=== PATIENT | male | born 1965 | race African-American/Black ===

== ENCOUNTER 2023-10-19 11:22 | Inpatient (IN) ==
--- NOTE | 2023-10-19 11:42 | CT Scan Report ---
CT SCAN OF THE BRAIN WITHOUT IV CONTRAST CLINICAL HISTORY: Neurological deficit. Stroke like symptoms. Slurred speech. COMPARISON STUDY: No priors. TECHNIQUE: Unenhanced axial CT scan of the brain is performed from the vertex to the skull base. A do se lowering technique was utilized adhering to the principles of ALARA. CT DOSE: 625.8 mGy.cm FINDINGS: Brain parenchyma: There is an age indeterminate lacunar infarct centered in the left basal ganglia/pe riventricular white matter. There is age-related involutional change noting mild subcortical and herminia ventricular microangiopathic disease. There is no hemorrhage, mass effect, or evidence of acute nathan torial ischemia by CT criteria. No extra-axial fluid collection is seen. Ventricles, sulci, cisterns: Prominent secondary to involutional change. Intracranial vasculature: There is atherosclerotic calcification of the cavernous carotid arteries. Calvarium: Unremarkable. Sinuses and mastoids: The visualized paranasal sinuses are clear. The mastoid air cells are well pneu matized. Orbits: The bony orbits are grossly intact. IMPRESSION: 1. There is no hemorrhage, mass effect, or evidence of acute territorial ischemia by CT criteria. 2. There is an age indeterminate lacunar infarct centered in the left basal ganglia/periventricular w santi matter. Consider MRI for further assessment given the concern for acute stroke. ACT 112: Negative or not required by law. Electronically signed by: Redd Mcbride M.D. 10/19/2023 11:41 AM
--- NOTE | 2023-10-19 11:50 | Emergency Department Note ---
Impression & Plan Acute CVA (cerebrovascular accident), HTN (hypertension), Uncontrolled type 2 diabetes mellitus ED Provider Note NAME: IVONNE BOSS AGE: 58 SEX: M : 1965 ARRIVES VIA: Walk-In INFORMANT: Patient ED PROVIDER(S): Amado Devlin DO CHIEF COMPLAINT: slurred speech and trouble walking HPI: Patient is a 58-year-old male who presents to the ER with a past medical history of diabetes, hypertension and CKD as well as hyperlipidemia for slurred speech. He notes that symptoms started yesterday early in the morning. He notes it has been persistent and has noticed that it throughout today. Has been having trouble walking as well. He denies any focal weakness in his arms or legs. No headache or change in vision. No chest pain or shortness of breath. No nausea, vomiting, or diarrhea. No dysuria, urgency, or frequency. No other exacerbating or remitting factors. He has not taken his amlodipine for several days has been out of his blood pressure medications. ADDITIONAL HISTORY OBTAINED: Per HPI Chronic Medical/Social Conditions Affecting Care: Per HPI PAST MEDICAL HISTORY:See Below PAST SURGICAL HISTORY:See Below FAMILY HISTORY:See Below SOCIAL HISTORY:See Below HOME MEDICATIONS:See Below ALLERGIES:See Below VITALS:See Below PHYSICAL EXAMINATION: GENERAL: Sitting up in bed, alert, well appearing, well nourished, no distress, non-toxic EYE EXAM: normal conjunctiva. [PERRL and EOM's grossly intact.] OROPHARYNX: no exudate, no erythema, lips, buccal mucosa, and tongue normal and mucous membranes are moist NECK: supple, no nuchal rigidity, no adenopathy, non-tender LUNGS: Clear to auscultation. Normal chest wall mechanics HEART: no murmurs, S1 normal and S2 normal ABDOMEN: abdomen soft, non-tender, normo-active bowel sounds, no masses, no rebound or guarding. BACK: Back is symmetrical on inspection and there is no deformity, no midline tenderness, no CVA tenderness. SKIN: no rashes and no bruising UPPER EXTREMITIES: upper extremities are grossly normal. LOWER EXTREMITIES: No pitting edema. NEURO EXAM: Normal sensorium, cranial nerves II-XII intact, normal speech, no weakness of arms, no weakness of legs. No drift. Finger to nose intact. Gross sensation intact. MEDICAL DECISION MAKING: Patient is an 58-year-old male who presents ER with a past medical history of hypertension, hyperlipidemia and diabetes as well as CKD for trouble talking as well as unsteady gait. IV was established blood work is obtained. Labs show mild leukopenia 3.5 thousand. No significant anemia. BMP along with LFTs was remarkable for glucose elevated 270. LFTs bilirubin was unremarkable. Blood pressure trended down from the 200s to 180s without treatment. CT suggest a CVA. Will allow permissive hypertension. Discussed with the hospitalist for further evaluation management treatment. Patient was not a TNK candidate as symptoms started yesterday and is clearly out of the window. Consults/Care Managements Discussions: Per [facility] Triage Nursing notes reviewed. Differential Diagnosis includes but is not limited to ischemic Stroke, hemorrhagic stroke, bells palsy, mass, neoplasm, migraine headache, seizure, subarachnoid hemorrhage, TIA, and transient global amnesia. Vital Signs: reviewed and remarkable for HTN Differential diagnosis: Differential Diagnosis includes but is not limited to ischemic Stroke, hemorrhagic stroke, bells palsy, mass, neoplasm, migraine headache, seizure, subarachnoid hemorrhage, TIA, and transient global amnesia. ER treatment provided: See below Diagnostics interpreted by me include EKG and cardiac monitoring as listed below: -Cardiac Monitoring: An order was placed for continuous cardiac monitoring. The monitor shows a rate of 72 with sinus rhythm. -ECG: Sinus rhythm rate of 70 Normal axis No PVCs QTc 423 Septal Q waves -Laboratory studies:Interpreted by me as stated above in MDM and shown below. Imaging studies: Xrays: As interpreted by me: Portable AP upright 1 view of the chest shows no focal infiltrate CTs show: CT angios of the head and neck as well as Noncon suggest a age- indeterminate CVA Procedures:none Critical Care: None Past Med/Surg History Medical History (Updated 10/19/23 @ 14:18 by Zachary Carmichael MD) Oral mucosal lesion CKD (chronic kidney disease) Overweight (BMI 25.0-29.9) Hyperlipidemia HTN (hypertension) Insulin-requiring or dependent type II diabetes mellitus Uncontrolled type 2 diabetes mellitus Surgical History History of colonoscopy 09/01/2018 Family History Mother Myocardial infarction Grandmother (Maternal) Diabetes Other Hypertension Social History (Updated 08/21/22 @ 09:24 by APOLINAR Aiken) Smoking Status: Current every day smoker Tobacco Type: Cigars Cigarettes Per Day: Smokes cigars twice a week; Do You Dip or Chew Tobacco: No; Hx Alcohol Use: Yes Alcohol type: hard liquor Alcohol Intake Frequency: 2-3 x/Week Alcohol Intake Frequency Comment: A cocktail 3 times week Hx Substance Use: No Preferred Language: Albanian Feels Safe at Home: Yes Allergies Allergies Allergy/AdvReac Type Severity Reaction Status Date / Time No Known Drug Allergies Allergy Verified 10/19/23 13:32 Home Meds Home Medications Medication Instructions Recorded Confirmed amlodipine 5 mg tablet 5 mg PO DAILY 07/12/21 10/19/23 aspirin 81 mg capsule 81 mg PO DAILY 07/12/21 10/19/23 blood sugar diagnostic (MasCuponTouch 07/12/21 08/21/22 Ultra Test strips) dapagliflozin propanediol 10 mg 10 mg PO DAILY 07/12/21 10/19/23 tablet (Farxiga) hydrochlorothiazide 25 mg tablet 25 mg PO DAILY 07/12/21 10/19/23 insulin glargine 100 unit/mL (3 30 unit subcut HS 07/12/21 10/19/23 mL) subcutaneous pen (Basaglar KwikPen U-100 Insulin) lancets (Ourpalmuch UltraSoft 07/12/21 08/21/22 Lancets) lisinopril 40 mg tablet 40 mg PO DAILY 07/12/21 10/19/23 metformin 500 mg tablet 500 mg PO TID 07/12/21 10/19/23 multivitamin 1 tab PO DAILY 07/12/21 10/19/23 omega-3 fatty acids 1,000 mg 2,000 mg PO BID 07/12/21 10/19/23 capsule (Fish Oil Concentrate) pen needle, diabetic 29 gauge x 07/12/21 08/21/22 1/2" (BD Ultra-Fine Original Pen Needle) rosuvastatin 10 mg tablet (Crestor) 10 mg PO DAILY 07/12/21 10/19/23 Results & Data (ED) Vital Signs Vital Signs - 24 hr 10/19/23 11:24 10/19/23 11:28 10/19/23 11:57 Temperature 36.1 C L Temperature Source Temporal Artery Scan Pulse Rate 71 65 Pulse Rate [Right Finger] 67 Respiratory Rate 18 18 Respiratory Effort / Characteristics Non-Labored Spontaneous Non-Labored Spontaneous Respiratory Depth Normal Normal Respiratory Pattern Regular Blood Pressure 223/131 H Blood Pressure [Left Arm] 198/117 H Blood Pressure Mean 161 Blood Pressure Mean [Left Arm] 144 Blood Pressure Position Sitting Pulse Oximetry 99 96 Oxygen Delivery Method Room Air Room Air Sepsis Recent Fever Within 48 Hours No Sepsis New/Unexplained Change in Mental Status N/A Sepsis Action Taken by Nursing No Action Required 10/19/23 11:57 10/19/23 11:57 10/19/23 13:27 Temperature Temperature Source Pulse Rate 67 Pulse Rate [Right Finger] 70 Respiratory Rate 18 20 Respiratory Effort / Characteristics Non-Labored Spontaneous Respiratory Depth Normal Respiratory Pattern Blood Pressure Blood Pressure [Left Arm] 183/127 H Blood Pressure Mean Blood Pressure Mean [Left Arm] 145 Blood Pressure Position Pulse Oximetry 96 96 96 Oxygen Delivery Method Room Air Room Air Room Air Sepsis Recent Fever Within 48 Hours Sepsis New/Unexplained Change in Mental Status Sepsis Action Taken by Nursing Laboratory Data 10/19/23 11:50 10/19/23 11:50 Lab Results 10/19/23 10/19/23 10/19/23 Range/Units 11:38 11:50 11:57 WBC 3.54 L (4.8-10.8) K/ul RBC 4.60 L (4.70-6.10) M/uL Hgb 14.4 (14.0-18.0) g/dl POC Hgb 14.6 (14.0-18.0) g/dl Hct 40.7 L (42.0-52.0) % POC Hct 43 (42-52) % MCV 88.5 (80.0-100.0) fL MCH 31.3 (25.0-34.0) pg MCHC 35.4 (32.0-36.0) g/dL RDW Std Deviation 38.7 (36.4-46.3) fL RDW Coeff of Lidia 11.9 (11.5-14.5) % Plt Count 197 (130-400) K/uL MPV 11.3 (9.4-12.4) fL PT 10.7 (9.0-12.0) Seconds INR 1.0 (0.9-1.1) APTT 24 (21-31) Seconds PTT Ratio 0.9 POC Sodium 140 (135-144) mmol/L Sodium 138 (136-145) mmol/L POC Potassium 4.5 (3.3-5.0) mmol/L Potassium 4.6 (3.5-5.1) mmol/L POC Chloride 104 (101-112) mmol/L Chloride 104 (98-107) mmol/L Carbon Dioxide 26 (21-32) mmol/L POC Total CO2 27 (24-31) mmol/L Anion Gap 8 (3-11) POC Anion Gap 15.0 L (16-25) mmol/L POC BUN 17 (7-18) mg/dl BUN 15 (6-23) mg/dl Creatinine 1.13 (0.6-1.4) mg/dl POC Creatinine 1.1 (0.6-1.3) mg/dl Est Cr Clr Drug Dosing 67.3 ml/min Est GFR ( Amer) 81.4 ml/min Est GFR (Non-Af Amer) 70.3 ml/min BUN/Creatinine Ratio 13.3 (10-20) Glucose 275 H (70-99(Fasting)) mg/dl POC Glucose 305 H* (70-99) mg/dl POC Glucose (other) 282 H (70-99) mg/dl Calcium 10.0 (8.6-10.3) mg/dl POC Ioniz Calcium Sandy 1.21 (1.12-1.32) mmol/l Magnesium 1.8 (1.7-2.4) mg/dl Total Bilirubin 0.9 (0.2-1.0) mg/dl AST 23 (13-39) U/L ALT 32 (7-52) U/L Alkaline Phosphatase 82 (34-104) U/L Total Protein 7.8 (6.0-8.3) gm/dl Albumin 4.5 (3.4-5.0) gm/dl Globulin 3.3 (2.5-4.0) gm/dl Albumin/Globulin Ratio 1.4 (0.9-2) Administered Medications Discontinued Medications Insulin Human Regular (Novolin-R Insulin Per Unit Charge) 3 units IV ONE ONE Stop: 10/19/23 14:01 Last Admin: 10/19/23 14:09 Dose: 3 units Documented By: SUSY Co-signed By: MARISSA Ioversol (Optiray 320 125ml) 119 ml IV ONCE ONE Stop: 10/19/23 12:25 Last Admin: 10/19/23 12:24 Dose: 119 ml Documented By: CONSTANTINE Imaging Data Radiologist's Impression: Chest X-Ray 10/19/23 11:28 XR chest 1V portable HISTORY: Neurologic deficit. Slurred speech. Stroke symptoms. COMPARISON: None. FINDINGS: The lungs are clear. Cardiac silhouette is borderline enlarged. No pleural effusions. No pneumothorax. IMPRESSION: Borderline cardiomegaly. Otherwise, no acute process within the chest. ACT 112: Negative or not required by law. Electronically signed by: Tomas Thompson M.D. 10/19/2023 12:[address] 10/19/23 11:28 CT SCAN OF THE BRAIN WITHOUT IV CONTRAST CLINICAL HISTORY: Neurological deficit. Stroke like symptoms. Slurred speech. COMPARISON STUDY: No priors. TECHNIQUE: Unenhanced axial CT scan of the brain is performed from the vertex to the skull base. A dose lowering technique was utilized adhering to the principles of ALARA. CT DOSE: 625.8 mGy.cm FINDINGS: Brain parenchyma: There is an age indeterminate lacunar infarct centered in the left basal ganglia/periventricular white matter. There is age-related involutional change noting mild subcortical and periventricular microangiopathic disease. There is no hemorrhage, mass effect, or evidence of acute territorial ischemia by CT criteria. No extra-axial fluid collection is seen. Ventricles, sulci, cisterns: Prominent secondary to involutional change. Intracranial vasculature: There is atherosclerotic calcification of the cavernous carotid arteries. Calvarium: Unremarkable. Sinuses and mastoids: The visualized paranasal sinuses are clear. The mastoid air cells are well pneumatized. Orbits: The bony orbits are grossly intact. IMPRESSION: 1. There is no hemorrhage, mass effect, or evidence of acute territorial ischemia by CT criteria. 2. There is an age indeterminate lacunar infarct centered in the left basal ganglia/periventricular white matter. Consider MRI for further assessment given the concern for acute stroke. ACT 112: Negative or not required by law. Electronically signed by: Redd Mcbride M.D. 10/19/2023 11:41 AM Head CTA 10/19/23 11:47 CT angio head w con CLINICAL HISTORY: 58 years-old Male with ? cva slurred speech trouble walking. Acute stroke like symptoms COMPARISON STUDY: Head CT of same day TECHNIQUE: Following the IV administration of 119 cc of Optiray, CT angiogram of the brain was performed from the skull base to the vertex. Images are reviewed in the axial, sagittal, and coronal planes. 3-D MIPS images are created and assessed. IV contrast was administered without complication. All measurements were obtained according to NASCET criteria. A dose lowering technique was utilized adhering to the principles of ALARA. FINDINGS: CT ANGIOGRAM OF THE BRAIN: The imaged bilateral internal carotid arteries are patent. The bilateral anterior and middle cerebral arteries are also patent. The vertebrobasilar system and posterior cerebral arteries are widely patent. There is no aneurysm, high-grade stenosis, or proximal branch occlusion identified. Dural sinuses appear patent. Age-indeterminate lacunar infarct within the left frontal lobe krueger radiata/lateral nucleus. IMPRESSION: Unremarkable CTA of the head. ACT 112: Negative or not required by law. The above report was generated using voice recognition software. It may contain grammatical, syntax or spelling errors. Electronically signed by: Tom Chirinos M.D. 10/19/2023 12:42 PM Neck CTA 10/19/23 11:47 CT ANGIOGRAM OF THE NECK CLINICAL HISTORY: Strokelike symptoms. Slurred speech. COMPARISON STUDY: No priors. TECHNIQUE: Following the IV administration of 119 of Optiray 320, CT angiogram of the neck was performed from the aortic arch to the skull base. Images are reviewed in the axial, sagittal, and coronal planes. 3-D MIPS images are created and assessed. IV contrast was administered without complication. All measurements were calculated based on NASCET criteria. A dose lowering technique was utilized adhering to the principles of ALARA. CT DOSE: 519.45 mGy.cm FINDINGS: Thoracic aorta: Visualized portions of the thoracic aorta are normal in caliber. The aortic arch demonstrates standard 3-vessel anatomy. Right carotid arterial system: The right common carotid artery is widely patent, as are the right internal and external carotid arteries. Calcified plaque is noted in the carotid bulb. Left carotid arterial system: The left common carotid artery is widely patent, as are the left internal and external carotid arteries. Mild calcified plaque is seen in the carotid bulb. Vertebral arteries: The vertebral arteries are widely patent bilaterally noting left-sided dominance. Subclavian arteries: Widely patent bilaterally. Intracranial vasculature: The visualized intracranial vessels at the skull base are patent. Jugular veins: Widely patent bilaterally. Brain parenchyma: The visualized brain parenchyma the skull base is within normal limits. Lung apices: Partially visualized upper lobe lung parenchyma appears clear. Soft tissues: The visualized pharyngeal soft tissues are normal in appearance noting angiographic phase technique. The oropharyngeal airway appears widely patent. The salivary and thyroid glands are normal in appearance. No cervical lymphadenopathy is seen. Skeletal structures: The visualized calvarium at the skull base appears intact. The imaged cervical spine is maintained noting multilevel spondylosis. Sinuses and mastoids: There is trace mucosal thickening in the right maxillary antrum. The mastoid air cells are well pneumatized. Cerumen is noted in the external auditory canals. IMPRESSION: Unremarkable CT angiogram of the neck. ACT 112: Negative or not required by law. Electronically signed by: Redd Mcbride M.D. 10/19/2023 12:36 PM Discharge Plan Visit Data Chief Complaint: TIA Symptoms Stated Complaint: SLURRED SPEECH ED Provider: Amado Devlin Discharge Problem: Acute CVA (cerebrovascular accident), HTN (hypertension), Uncontrolled type 2 diabetes mellitus Patient Disposition: Admitted As Inpatient Discharge Instructions Interventions: ED Discharge Assessment Last Done: 10/19/23 13:37
[2023-10-19 12:10] LABS: iSTAT Creatinine 1.1 mg/dl (0.6-1.3); iSTAT Hemoglobin 14.6 g/dl (14.0-18.0); iSTAT Ionized Calcium 1.21 mmol/l (1.12-1.32); iSTAT Potassium 4.5 mmol/L (3.3-5.0)
[2023-10-19 12:17] LABS: Hematocrit (blood only) 40.7 % (42.0-52.0); Hemoglobin 14.4 g/dl (14.0-18.0); Mean Corpuscular Hemoglobin 31.3 pg (25.0-34.0); Mean Corpuscular Hgb Conc 35.4 g/dL (32.0-36.0); Mean Corpuscular Volume 88.5 fL (80.0-100.0); Mean Platelet Volume 11.3 fL (9.4-12.4); Platelet Count 197 K/uL (130-400); RDW Coefficient of Variation 11.9 % (11.5-14.5); RDW Standard Deviation 38.7 fL (36.4-46.3); White Blood Count 3.54 K/ul (4.8-10.8)
[2023-10-19] MEDS ORDERED: OPTIRAY 320 125ml IV ONE (12:24)
[2023-10-19 12:36] LABS: Albumin Globulin Ratio 1.4 (0.9-2); Albumin Level 4.5 gm/dl (3.4-5.0); BUN Creatinine Ratio 13.3 (10-20); Bilirubin,Total 0.9 mg/dl (0.2-1.0); Creatinine Clr Calc Pharmacy 67.3 ml/min; Est GFR (African American) 81.4 ml/min; Est GFR (Non-African American) 70.3 ml/min; Globulin 3.3 gm/dl (2.5-4.0); Magnesium 1.8 mg/dl (1.7-2.4); Potassium 4.6 mmol/L (3.5-5.1); Total Protein 7.8 gm/dl (6.0-8.3)
--- NOTE | 2023-10-19 12:38 | CT Scan Report ---
CT ANGIOGRAM OF THE NECK CLINICAL HISTORY: Strokelike symptoms. Slurred speech. COMPARISON STUDY: No priors. TECHNIQUE: Following the IV administration of 119 of Optiray 320, CT angiogram of the neck was perfor med from the aortic arch to the skull base. Images are reviewed in the axial, sagittal, and coronal p lanes. 3-D MIPS images are created and assessed. IV contrast was administered without complication. A ll measurements were calculated based on NASCET criteria. A dose lowering technique was utilized adh ering to the principles of ALARA. CT DOSE: 519.45 mGy.cm FINDINGS: Thoracic aorta: Visualized portions of the thoracic aorta are normal in caliber. The aortic arch demo nstrates standard 3-vessel anatomy. Right carotid arterial system: The right common carotid artery is widely patent, as are the right int ernal and external carotid arteries. Calcified plaque is noted in the carotid bulb. Left carotid arterial system: The left common carotid artery is widely patent, as are the left director internal control al and external carotid arteries. Mild calcified plaque is seen in the carotid bulb. Vertebral arteries: The vertebral arteries are widely patent bilaterally noting left-sided dominance. Subclavian arteries: Widely patent bilaterally. Intracranial vasculature: The visualized intracranial vessels at the skull base are patent. Jugular veins: Widely patent bilaterally. Brain parenchyma: The visualized brain parenchyma the skull base is within normal limits. Lung apices: Partially visualized upper lobe lung parenchyma appears clear. Soft tissues: The visualized pharyngeal soft tissues are normal in appearance noting angiographic pha se technique. The oropharyngeal airway appears widely patent. The salivary and thyroid glands are nor mal in appearance. No cervical lymphadenopathy is seen. Skeletal structures: The visualized calvarium at the skull base appears intact. The imaged cervical s pine is maintained noting multilevel spondylosis. Sinuses and mastoids: There is trace mucosal thickening in the right maxillary antrum. The mastoid ai r cells are well pneumatized. Cerumen is noted in the external auditory canals. IMPRESSION: Unremarkable CT angiogram of the neck. ACT 112: Negative or not required by law. Electronically signed by: Redd Mcbride M.D. 10/19/2023 12:36 PM
[2023-10-19 12:42] LABS: Partial Thromboplastin Ratio 0.9; Partial Thromboplastin Time 24 Seconds (21-31); Prothrombin Time 10.7 Seconds (9.0-12.0)
--- NOTE | 2023-10-19 12:43 | CT Scan Report ---
CT angio head w con CLINICAL HISTORY: 58 years-old Male with ? cva slurred speech trouble walking. Acute stroke like s ymptoms COMPARISON STUDY: Head CT of same day TECHNIQUE: Following the IV administration of 119 cc of Optiray, CT angiogram of the brain was perfor med from the skull base to the vertex. Images are reviewed in the axial, sagittal, and coronal planes . 3-D MIPS images are created and assessed. IV contrast was administered without complication. All me asurements were obtained according to NASCET criteria. A dose lowering technique was utilized adherin g to the principles of ALARA. FINDINGS: CT ANGIOGRAM OF THE BRAIN: The imaged bilateral internal carotid arteries are patent. The bilateral anterior and middle cerebral arteries are also patent. The vertebrobasilar system and posterior cerebral arteries are widely russell nt. There is no aneurysm, high-grade stenosis, or proximal branch occlusion identified. Dural sinuses appear patent. Age-indeterminate lacunar infarct within the left frontal lobe krueger radiata/lateral nucleus. IMPRESSION: Unremarkable CTA of the head. ACT 112: Negative or not required by law. The above report was generated using voice recognition software. It may contain grammatical, syntax o r spelling errors. Electronically signed by: Tom Chirinos M.D. 10/19/2023 12:42 PM
--- NOTE | 2023-10-19 13:00 | XRay Report ---
XR chest 1V portable HISTORY: Neurologic deficit. Slurred speech. Stroke symptoms. COMPARISON: None. FINDINGS: The lungs are clear. Cardiac silhouette is borderline enlarged. No pleural effusions. No pn eumothorax. IMPRESSION: Borderline cardiomegaly. Otherwise, no acute process within the chest. ACT 112: Negative or not required by law. Electronically signed by: Tomas Thompson M.D. 10/19/2023 12:59 PM
[2023-10-19] MEDS ORDERED: PHARMACIST DISCHARGE MED REC CONSULT PRN (13:41)
[2023-10-19] MEDS ORDERED: INSULIN HUMAN REGULAR PER UNIT 3 UNITS in SYRINGE 0 ML IV STA (13:44)
--- NOTE | 2023-10-19 13:44 | History & Physical Report ---
Date of Service October 19, 2023 Assessment & Plan (1) Acute CVA (cerebrovascular accident): Plan: Of note patient has run out of all of his medications and has not taken any prescriptions for at least a few months. All medications will need to be prescribed on discharge. Suspected on CT head with acute symptoms of slurred speech and reduced balance Suspect on basis of small vessel disease given uncontrolled HTN, BP, Smoking CTA negative for large vessel disease Outside window for TNK TTE PT/OT evaluations Speech evaluation Consult neurology ASA 324mg taken prior to hospitalizan, if MRI confirms acute stroke will start clopidogrel 300mg PO today then 75 mg daily Allow permissive HTN sBP < 220 sBP < 110, give one dose of amlodipine 2.5mg PO now as likely stroke happened yesterday Restart on rosuvastatin but increase to 20mg PO daily (2) HTN (hypertension): Plan: Amlodipine 2,5mg PO now Will defer ongoing management depending on serial BP measurements (3) Insulin-requiring or dependent type II diabetes mellitus: Plan: Previously on Lantus 30 units SQ daily with Novolog 5 units/meal, Farxiga and metformin HbA1C reportedly in 9s a year ago although suspect it is currently above 11 since he has been off all his medications HbA1c with a.m. labs Initial diabetes control with Lantus 10 units BID, NovoLog --Goal BSG Range: Low 110 mg/dL, High 140 mg/dL --Correction Factor: 45 mg/dL/unit --Carbohydrate ratio = 15 g/unit --BSGs ACHS if eating, q6h if npo Consult pharmacy for ongoing glycemic control in the setting of acute CVA (4) Hyperlipidemia: Plan: Restart rosuvastatin at higher intensity 20 mg p.o. daily Plan VTE prophylaxis - deferred since we are starting aspirin and possibly clopidogrel, patient ambulatory Diet - heart healthy, type 2 diabetes Disposition - admit to PCU Admission and Anticipated Discharge Date Admission Date: October 19, 2023 History of Present Illness Chief Complaint: Slurred speech, ambulatory dysfunction Primary Care Provider: NO PCP Sea Maier 58 year old male who presents to the ER with slurred speech and ambulatory dysfunction. He reports symptoms started yesterday with mild difficulty in getting out the right words, pausing more, thinking clearly but difficulty getting his words out. He was still not quite as clear today but decided to go to work when he noticed his balance was slightly off and bumping into tables. He has significant risk factors for cardiovascular disease and recently stopped taking all of his medications for diabetes, hypertension and hypercholesterolemia for the last few months. He stopped all of his medications as he just didn't like taking them as he felt they made him nauseous. He thinks his last HbA1C was approximately a year ago around 9 but was taking insulin that time. In addition he smokes 2 cigars a day but is now motivated to quit. He has a significant family history with his moth, grandmother, cousin dying in their 40s, 50s and 30s respectively with cardiovascular disease. He personally has never had a stroke or heart attack. His gave him x4 aspirin at home prior to arrival in the ER. Allergies Allergy/AdvReac Type Severity Reaction Status Date / Time No Known Drug Allergies Allergy Verified 10/19/23 13:32 Home Medications Medication Instructions Recorded Confirmed Type amlodipine 5 mg tablet 5 mg PO DAILY 07/12/21 10/19/23 History aspirin 81 mg capsule 81 mg PO DAILY 07/12/21 10/19/23 History blood sugar diagnostic ([employer] 07/12/21 08/21/22 History Ultra Test strips) dapagliflozin propanediol 10 mg 10 mg PO DAILY 07/12/21 10/19/23 History tablet (Farxiga) hydrochlorothiazide 25 mg tablet 25 mg PO DAILY 07/12/21 10/19/23 History insulin glargine 100 unit/mL (3 30 unit subcut HS 07/12/21 10/19/23 History mL) subcutaneous pen (Basaglar KwikPen U-100 Insulin) lancets ([employer] UltraSoft 07/12/21 08/21/22 History Lancets) lisinopril 40 mg tablet 40 mg PO DAILY 07/12/21 10/19/23 History metformin 500 mg tablet 500 mg PO TID 07/12/21 10/19/23 History multivitamin 1 tab PO DAILY 07/12/21 10/19/23 History omega-3 fatty acids 1,000 mg 2,000 mg PO BID 07/12/21 10/19/23 History capsule (Fish Oil Concentrate) pen needle, diabetic 29 gauge x 07/12/21 08/21/22 History 1/2" (BD Ultra-Fine Original Pen Needle) rosuvastatin 10 mg tablet (Crestor) 10 mg PO DAILY 07/12/21 10/19/23 History Past Med/Surg History Medical History (Updated 10/19/23 @ 14:18 by Zachary Carmichael MD) Oral mucosal lesion CKD (chronic kidney disease) Overweight (BMI 25.0-29.9) Hyperlipidemia HTN (hypertension) Insulin-requiring or dependent type II diabetes mellitus Uncontrolled type 2 diabetes mellitus Surgical History History of colonoscopy 09/01/2018 Family History Mother Myocardial infarction Grandmother (Maternal) Diabetes Other Hypertension Social History (Updated 08/21/22 @ 09:24 by APOLINAR Aiken) Smoking Status: Current some day smoker Tobacco Type: Cigars Cigarettes Per Day: Smokes cigars twice a week; Second Hand Exposure: No; Do You Dip or Chew Tobacco: No; Tobacco Cessation Education Requested by Patient: No Hx Alcohol Use: Yes Alcohol type: hard liquor Alcohol Intake Frequency: 2-3 x/Week Alcohol Intake Frequency Comment: A cocktail 3 times week Hx Substance Use: No Preferred Language: Macedonian Communication Ability: Effective 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 Beliefs That Will Affect Care: None Current Living Situation: Spouse Other Information That Helps Us Care for You: No Feels Safe at Home: Yes Safety Concerns: Feels Safe At This Time Assistive Devices: Glasses Review of Systems Review of Systems: All systems reviewed & are unremarkable except as noted in HPI & below Physical Exam Constitutional: WD/WN, vitals as above Eyes: PERRL, conjunctivae normal, anicteric sclerae ENMT: external ear and nose normal, oropharynx normal Neck: trachea midline, no thyromegaly Respiratory: normal respiratory effort, lungs clear to auscultation Cardiovascular: RRR, no murmur, no edema Gastrointestinal (Abdomen): normal bowel sounds, soft, nontender, no hepatosplenomegaly Musculoskeletal: no cyanosis or clubbing, extremities motor strength 5/5 Skin: no rashes, warm and dry Neurologic: CN's II-XI intact bilaterally, moves all extremities and awake; no focal motor deficits and not confused Speech / Cognition: normal speech Motor/Sensory: no tremor and no pronator drift Cranial Nerves: PERRL, EOM intact bilaterally, normal facial strength, tongue midline, able to rotate head bilaterally, able to elevate shoulders bilaterally, no nystagmus and symmetric p alate elevation Coordination: normal [id number] test Psychiatric: A+Ox3, euthymic affect Results & Data Results & Data Vital Signs (Past 12 Hours) Vital Signs Temp Pulse Pulse Resp BP BP Pulse Ox 10/19/23 13:27 70 20 183/127 H 96 10/19/23 11:57 67 18 96 10/19/23 11:57 96 10/19/23 11:57 67 18 198/117 H 96 10/19/23 11:28 65 10/19/23 11:24 36.1 C L 71 18 223/131 H 99 O2 Del Method 10/19/23 13:27 Room Air 10/19/23 11:57 Room Air 10/19/23 11:57 Room Air 10/19/23 11:57 Room Air 10/19/23 11:28 10/19/23 11:24 Room Air Laboratory Results Abnormal lab results 10/19/23 10/19/23 10/19/23 Range/Units 11:38 11:50 11:57 WBC 3.54 L (4.8-10.8) K/ul RBC 4.60 L (4.70-6.10) M/uL Hct 40.7 L (42.0-52.0) % POC Anion Gap 15.0 L (16-25) mmol/L Glucose 275 H (70-99(Fasting)) mg/dl POC Glucose 305 H* (70-99) mg/dl POC Glucose (other) 282 H (70-99) mg/dl Diagnostic Findings XR chest 1V portable HISTORY: Neurologic deficit. Slurred speech. Stroke symptoms. COMPARISON: None. FINDINGS: The lungs are clear. Cardiac silhouette is borderline enlarged. No pleural effusions. No pneumothorax. IMPRESSION: Borderline cardiomegaly. Otherwise, no acute process within the chest. CT SCAN OF THE BRAIN WITHOUT IV CONTRAST CLINICAL HISTORY: Neurological deficit. Stroke like symptoms. Slurred speech. COMPARISON STUDY: No priors. TECHNIQUE: Unenhanced axial CT scan of the brain is performed from the vertex to the skull base. A dose lowering technique was utilized adhering to the principles of ALARA. CT DOSE: 625.8 mGy.cm FINDINGS: Brain parenchyma: There is an age indeterminate lacunar infarct centered in the left basal ganglia/periventricular white matter. There is age-related involutional change noting mild subcortical and periventricular microangiopathic disease. There is no hemorrhage, mass effect, or evidence of acute territorial ischemia by CT criteria. No extra-axial fluid collection is seen. Ventricles, sulci, cisterns: Prominent secondary to involutional change. Intracranial vasculature: There is atherosclerotic calcification of the cavernous carotid arteries. Calvarium: Unremarkable. Sinuses and mastoids: The visualized paranasal sinuses are clear. The mastoid air cells are well pneumatized. Orbits: The bony orbits are grossly intact. IMPRESSION: 1. There is no hemorrhage, mass effect, or evidence of acute territorial ischemia by CT criteria. 2. There is an age indeterminate lacunar infarct centered in the left basal ganglia/periventricular white matter. Consider MRI for further assessment given the concern for acute stroke. CT angio head w con CLINICAL HISTORY: 58 years-old Male with ? cva slurred speech trouble walking. Acute stroke like symptoms COMPARISON STUDY: Head CT of same day TECHNIQUE: Following the IV administration of 119 cc of Optiray, CT angiogram of the brain was performed from the skull base to the vertex. Images are reviewed in the axial, sagittal, and coronal planes. 3-D MIPS images are created and assessed. IV contrast was administered without complication. All measurements were obtained according to NASCET criteria. A dose lowering technique was utilized adhering to the principles of ALARA. FINDINGS: CT ANGIOGRAM OF THE BRAIN: The imaged bilateral internal carotid arteries are patent. The bilateral anterior and middle cerebral arteries are also patent. The vertebrobasilar system and posterior cerebral arteries are widely patent. There is no aneurysm, high-grade stenosis, or proximal branch occlusion identified. Dural sinuses appear patent. Age-indeterminate lacunar infarct within the left frontal lobe krueger radiata/lateral nucleus. IMPRESSION: Unremarkable CTA of the head. CT ANGIOGRAM OF THE NECK CLINICAL HISTORY: Strokelike symptoms. Slurred speech. COMPARISON STUDY: No priors. TECHNIQUE: Following the IV administration of 119 of Optiray 320, CT angiogram of the neck was performed from the aortic arch to the skull base. Images are reviewed in the axial, sagittal, and coronal planes. 3-D MIPS images are created and assessed. IV contrast was administered without complication. All measurements were calculated based on NASCET criteria. A dose lowering technique was utilized adhering to the principles of ALARA. CT DOSE: 519.45 mGy.cm FINDINGS: Thoracic aorta: Visualized portions of the thoracic aorta are normal in caliber. The aortic arch demonstrates standard 3-vessel anatomy. Right carotid arterial system: The right common carotid artery is widely patent, as are the right internal and external carotid arteries. Calcified plaque is noted in the carotid bulb. Left carotid arterial system: The left common carotid artery is widely patent, as are the left internal and external carotid arteries. Mild calcified plaque is seen in the carotid bulb. Vertebral arteries: The vertebral arteries are widely patent bilaterally noting left-sided dominance. Subclavian arteries: Widely patent bilaterally. Intracranial vasculature: The visualized intracranial vessels at the skull base are patent. Jugular veins: Widely patent bilaterally. Brain parenchyma: The visualized brain parenchyma the skull base is within normal limits. Lung apices: Partially visualized upper lobe lung parenchyma appears clear. Soft tissues: The visualized pharyngeal soft tissues are normal in appearance noting angiographic phase technique. The oropharyngeal airway appears widely patent. The salivary and thyroid glands are normal in appearance. No cervical lymphadenopathy is seen. Skeletal structures: The visualized calvarium at the skull base appears intact. The imaged cervical spine is maintained noting multilevel spondylosis. Sinuses and mastoids: There is trace mucosal thickening in the right maxillary antrum. The mastoid air cells are well pneumatized. Cerumen is noted in the external auditory canals. IMPRESSION: Unremarkable CT angiogram of the neck. Medications Administered ER medications given: None ECG Rate (beats per minute): 70 Rhythm: normal sinus Findings: no acute ischemic change Comparison ECG Date: no prior available Code Status & VTE Plan Code Status Full VTE Prophylaxis Plan VTE Prophylaxis will be ordered: Yes PG Care Time/CCT Total # of Minutes Spent Total Time Spent with Patient: Total time spent is greater than 50% in coordination of care (as documented) at patient's floor/unit and/or counseling patient: Coding Level of Care Code 65428 INT INP/OBS CARE 3/75MIN Diagnoses Acute CVA (cerebrovascular accident) I63.9 HTN (hypertension) I10 Insulin-requiring or dependent type II diabetes mellitus E11.9; Z79.4 Hyperlipidemia E78.5
[2023-10-19] MEDS ORDERED: NovoLIN-R INSULIN PER UNIT CHARGE IV ONE (14:00)
[2023-10-19] MEDS ORDERED: CARBOHYDRATES FOR HYPOGLYCEMIA PO PRN (14:06)
[2023-10-19] MEDS ORDERED: GLUCOSE 40% GEL 15 GM TUBE PO PRN (14:06)
[2023-10-19] MEDS ORDERED: GLUCOSE 10 TAB/TUBE PO PRN (14:06)
[2023-10-19] MEDS ORDERED: GLUCAGON FOR INJ 1 MG VIAL SQ PRN (14:06)
[2023-10-19] MEDS ORDERED: DEXTROSE 50% 50 ML SYRINGE IV PRN (14:06)
[2023-10-19] MEDS ORDERED: PHARMACY GLYCEMIC MGMT CONSULT PRN (14:06)
[2023-10-19] MEDS ORDERED: amLODIPine BESYLATE 5 MG TAB PO ONE (14:19)
--- NOTE | 2023-10-19 14:35 | Pharmacy Report ---
Pharmacy Glycemic Short Note 2 - Date of Service October 19, 2023 - Glycemic Short BSG Results (Last 24 hours): 10/19/23 10/19/23 10/19/23 11:38 11:50 11:57 Glucose 275 H POC Glucose 305 H* POC Glucose (other) 282 H OUTPATIENT ANTIDIABETIC REGIMEN: * Metformin 500 mg PO TID * Farxiga 10 mg PO daily * Lantus 30 units SC HS * HbA1c pending for 10/20/23 ASSESSMENT: * 58 yo M admitted on 10/19/23 secondary to stroke-like symptoms. Pharmacy has been consulted to assist with inpatient glycemic management. Patient is a Type 2 diabetic as an outpatient. Please refer to outpatient regimen and most recent HbA1c above. * POC BSG was 305 mg/dL upon presentation. Patient was given a 3 unit IV push of insulin in the ED. Patient is ordered a diet. * Spoke with RN and patient will not be eating until dinner. Will start Novolog based on weight/stress of 2-3. * Patient did not take Lantus last evening so expect basal deficiency which could be causing hyperglycemia. Will start at home dose of basal insulin for now. Reassess tomorrow. PLAN FOR INPATIENT GLYCEMIC CONTROL: * Hold outpatient oral diabetes medications * Basal insulin * Lantus 30 units SC HS * Bolus insulin * NovoLog per scale ACHS or Q6hrs while NPO * Goal Range: Low 110 mg/dL - High 140 mg/dL * Correction Factor: 25 mg/dL/unit * Nutritional / Prandial insulin per carb ratio of 1 unit per 8 grams CHO consumed
--- NOTE | 2023-10-19 14:55 | Electrocardiogram Report ---
Test Reason : Blood Pressure : / mmHG Vent. Rate : 070 BPM Atrial Rate : 070 BPM P-R Int : 150 ms QRS Dur : 086 ms QT Int : 392 ms P-R-T Axes : 040 -10 071 degrees QTc Int : 423 ms Normal sinus rhythm Possible Left atrial enlargement Cannot rule out Inferior infarct , age undetermined Abnormal ECG No previous ECGs available Confirmed by Josh Figueroa ([id number]) on 10/19/2023 2:54:49 PM Referred By: REFERRED SELF Confirmed By:Josh Figueroa
--- NOTE | 2023-10-19 16:17 | Magnetic Resonance Report ---
Brain MRI WITHOUT CONTRAST HISTORY: Slurred speech ?CVA TECHNIQUE: Multiplanar multisequence MRI of the brain was performed without the use of contrast. COMPARISON STUDY: Head and neck CTA 10/19/2023. FINDINGS: There is an 11 x 7 mm focus of restricted diffusion within the left basal ganglia consisten t with an acute infarct. The midline structures are intact. Small retention cyst within the left maxi llary sinus. The mastoid air cells are clear. The orbits are unremarkable. The major vascular flow vo ids at the skull base are well-maintained. The ventricles and sulci are within normal limits. There i s no mass, hematoma, or midline shift. A few scattered foci of T2 hyperintensity seen within the herminia ventricular white matter suggestive of microvascular ischemic change. IMPRESSION: An 11 x 7 mm acute left basal ganglia infarct. ACT 112: Negative or not required by law. Electronically signed by: Tomas Thompson M.D. 10/19/2023 4:15 PM
[2023-10-19] MEDS ORDERED: CLOPIDOGREL BISULFATE 300 MG TAB PO STA (16:21)
--- NOTE | 2023-10-19 17:09 | XCELERA ---
[id number]
[2023-10-19] MEDS: INSULIN ASPART PER UNIT CHARGE SC SCH ×2 (18:12→21:47)
[2023-10-19] MEDS ORDERED: amLODIPine BESYLATE 5 MG TAB PO STA (18:39)
[2023-10-19] MEDS ORDERED: LANTUS PER UNIT CHARGE SC ONE (21:00)
[2023-10-19] MEDS ORDERED: ROSUVASTATIN CALCIUM 20 MG TAB PO SCH (21:00)
[2023-10-19] MEDS ORDERED: LANTUS PER UNIT CHARGE SC SCH (21:00)
[2023-10-19] MEDS: hydrALAZINE HCL 20 MG/ML VIAL IV PRN (23:19)
[2023-10-20] MEDS: hydrALAZINE HCL 20 MG/ML VIAL IV PRN (03:00)
[2023-10-20] MEDS ORDERED: ACETAMINOPHEN 500 MG TAB PO PRN (03:15)
[2023-10-20] MEDS ORDERED: ACETAMINOPHEN 500 MG TAB ONE (03:25)
--- NOTE | 2023-10-20 06:56 | Hospitalist Progress Note ---
Date of Service October 20, 2023 Assessment & Plan (1) Acute CVA (cerebrovascular accident): Plan: Of note patient has run out of all of his medications and has not taken any prescriptions for at least a few months. All medications will need to be prescribed on discharge. Suspected on CT head with acute symptoms of slurred speech and reduced balance Suspect on basis of small vessel disease given uncontrolled HTN, BP, Smoking CTA negative for large vessel disease MRI Brain with An 11 x 7 mm acute left basal ganglia infarct. Outside window for TNK TTE- without intraarterial shunt PT/OT evaluations Speech evaluation Consult neurology Plan to continue clopidogrel 75mg daily, aspirin 81mg Allow permissive HTN sBP < 220 sBP < 110 Restart on rosuvastatin but increase to 20mg PO daily (2) HTN (hypertension): Plan: Amlodipine 2,5mg PO now Will defer ongoing management depending on serial BP measurements (3) Insulin-requiring or dependent type II diabetes mellitus: Plan: Previously on Lantus 30 units SQ daily with Novolog 5 units/meal, Farxiga and metformin HbA1C reportedly in 9s a year ago although suspect it is currently above 11 since he has been off all his medications HbA1c with a.m. labs Initial diabetes control with Lantus 10 units BID, NovoLog --Goal BSG Range: Low 110 mg/dL, High 140 mg/dL --Correction Factor: 45 mg/dL/unit --Carbohydrate ratio = 15 g/unit --BSGs ACHS if eating, q6h if npo Consult pharmacy for ongoing glycemic control in the setting of acute CVA (4) Hyperlipidemia: Plan: Restart rosuvastatin at higher intensity 20 mg p.o. daily Plan Diet - heart healthy, type 2 diabetes Admission and Anticipated Discharge Date Admission Date: October 19, 2023 Subjective Pt doing well this morning. States that symptoms started on Thursday, but became more prominent yesterday. Still notes word finding difficulties and some balance issues. Review of Systems Review of Systems: As per above Physical Exam Physical Exam: Constitutional: well-appearing, no acute distress HEENT: NCAT, no conjunctival injection CV: regular rhythm, no murmur appreciated, extremities well-perfused, no LE edema Resp: CTABL, no wheezes/rales/rhonchi appreciated, no increased work of breathing GI: soft, nondistended, nontender MSK: no gross deformities appreciated Skin: warm, dry, no rash appreciated Neuro: alert, oriented, CN II-XII intact, strength 5/5 UE and LE B/L Results & Data Results & Data Vital Signs (Past 12 Hours) Vital Signs Temp Pulse Pulse Resp BP BP Pulse Ox 10/20/23 05:45 168/99 H 10/20/23 02:56 77 16 197/113 H 99 10/19/23 22:55 36.8 C 74 18 170/105 H 96 10/19/23 21:56 72 10/19/23 19:30 10/19/23 19:26 36.5 C 71 18 167/111 H 97 O2 Del Method 10/20/23 05:45 10/20/23 02:56 Room Air 10/19/23 22:55 Room Air 10/19/23 21:56 10/19/23 19:30 Room Air 10/19/23 19:26 Room Air Resident Activity Tracking Resident Involvement: Resident Care Provided Care Provided: Adult Hospital Medicine
[2023-10-20 07:11] LABS: Basophils # (auto) 0.03 K/uL (0.00-0.20); Basophils % (auto) 0.5 %; Eosinophils # (auto) 0.04 K/uL (0.00-0.50); Eosinophils % (auto) 0.7 %; Hematocrit (blood only) 37.8 % (42.0-52.0); Hemoglobin 13.7 g/dl (14.0-18.0); Immature Granulocytes # (auto) 0.01 K/uL (0.01-0.20); Immature Granulocytes % (auto) 0.2 %; Lymphocytes % (auto) 21.9 %; Mean Corpuscular Hemoglobin 31.6 pg (25.0-34.0); Mean Corpuscular Hgb Conc 36.2 g/dL (32.0-36.0); Mean Corpuscular Volume 87.3 fL (80.0-100.0); Mean Platelet Volume 11.1 fL (9.4-12.4); Monocytes # (auto) 0.29 K/uL (0.11-0.59); Monocytes % (auto) 4.9 %; Neutrophils # (auto) 4.26 K/uL (1.40-6.50); Neutrophils % (auto) 71.8 %; Platelet Count 205 K/uL (130-400); RDW Coefficient of Variation 11.8 % (11.5-14.5); RDW Standard Deviation 38.1 fL (36.4-46.3); Red Blood Count 4.33 M/uL (4.70-6.10); White Blood Count 5.93 K/ul (4.8-10.8)
[2023-10-20 07:26] LABS: BUN Creatinine Ratio 13.6 (10-20); Calcium 9.9 mg/dl (8.6-10.3); Chol HDL Ratio 4.8 (0-5); Creatinine Clr Calc Pharmacy 69.1 ml/min; Est GFR (African American) 84.1 ml/min; Est GFR (Non-African American) 72.6 ml/min
[2023-10-20] MEDS: INSULIN ASPART PER UNIT CHARGE SC SCH ×2 (08:03→12:33)
[2023-10-20] MEDS ORDERED: ASPIRIN 81 MG ECTAB PO SCH (09:00)
[2023-10-20] MEDS ORDERED: LANTUS PER UNIT CHARGE SC ONE (09:00)
[2023-10-20] MEDS ORDERED: CLOPIDOGREL BISULFATE 75 MG TAB PO SCH (09:00)
[2023-10-20 09:21] LABS: Estimated Average Glucose 237 mg/dl; Hemoglobin A1C 9.9 % (4.5-5.6)
--- NOTE | 2023-10-20 10:22 | Neurology Consultation ---
Date of Consultation October 20, 2023 Assessment & Plan (1) Acute CVA (cerebrovascular accident): History of Present Illness Attending Physician: Amado Padgett DO History of Present Illness pt with small ischemic left basal ganglia stroke. no bleed. pt this morning feeling well. no deficits. admission HPI: Sea Maier 58 year old male who presents to the ER with slurred speech and ambulatory dysfunction. He reports symptoms started yesterday with mild difficulty in getting out the right words, pausing more, thinking clearly but difficulty getting his words out. He was still not quite as clear today but decided to go to work when he noticed his balance was slightly off and bumping into tables. He has significant risk factors for cardiovascular disease and recently stopped taking all of his medications for diabetes, hypertension and hypercholesterolemia for the last few months. He stopped all of his medications as he just didn't like taking them as he felt they made him nauseous. He thinks his last HbA1C was approximately a year ago around 9 but was taking insulin that time. In addition he smokes 2 cigars a day but is now motivated to quit. He has a significant family history with his moth, grandmother, cousin dying in their 40s, 50s and 30s respectively with cardiovascular disease. He personally has never had a stroke or heart attack. His gave him x4 aspirin at home prior to arrival in the ER. Allergies Allergy/AdvReac Type Severity Reaction Status Date / Time No Known Drug Allergies Allergy Verified 10/19/23 13:32 Home Medications Medication Instructions Recorded Confirmed Type amlodipine 5 mg tablet 5 mg PO DAILY 07/12/21 10/19/23 History aspirin 81 mg capsule 81 mg PO DAILY 07/12/21 10/19/23 History blood sugar diagnostic (OneTouch 07/12/21 08/21/22 History Ultra Test strips) dapagliflozin propanediol 10 mg 10 mg PO DAILY 07/12/21 10/19/23 History tablet (Farxiga) hydrochlorothiazide 25 mg tablet 25 mg PO DAILY 07/12/21 10/19/23 History insulin glargine 100 unit/mL (3 30 unit subcut HS 07/12/21 10/19/23 History mL) subcutaneous pen (Basaglar KwikPen U-100 Insulin) lancets ([employer]cyTouch UltraSoft 07/12/21 08/21/22 History Lancets) lisinopril 40 mg tablet 40 mg PO DAILY 07/12/21 10/19/23 History metformin 500 mg tablet 500 mg PO TID 07/12/21 10/19/23 History multivitamin 1 tab PO DAILY 07/12/21 10/19/23 History omega-3 fatty acids 1,000 mg 2,000 mg PO BID 07/12/21 10/19/23 History capsule (Fish Oil Concentrate) pen needle, diabetic 29 gauge x 07/12/21 08/21/22 History 1/2" (BD Ultra-Fine Original Pen Needle) rosuvastatin 10 mg tablet (Crestor) 10 mg PO DAILY 07/12/21 10/19/23 History Patient History Medical History (Updated 10/19/23 @ 14:18 by Zachary Carmichael MD) Oral mucosal lesion CKD (chronic kidney disease) Overweight (BMI 25.0-29.9) Hyperlipidemia HTN (hypertension) Insulin-requiring or dependent type II diabetes mellitus Uncontrolled type 2 diabetes mellitus Surgical History History of colonoscopy 09/01/2018 Family History Mother Myocardial infarction Grandmother (Maternal) Diabetes Other Hypertension Social History (Updated 08/21/22 @ 09:24 by APOLINAR Aiken) Smoking Status: Current some day smoker Tobacco Type: Cigars Cigarettes Per Day: Smokes cigars twice a week; Second Hand Exposure: No; Do You Dip or Chew Tobacco: No; Tobacco Cessation Education Requested by Patient: No Hx Alcohol Use: Yes Alcohol type: hard liquor Alcohol Intake Frequency: 2-3 x/Week Alcohol Intake Frequency Comment: A cocktail 3 times week Hx Substance Use: No Preferred Language: Setswana Communication Ability: Effective Pre Sales Architect Required: No Beliefs That Will Affect Care: None Current Living Situation: Spouse Other Information That Helps Us Care for You: No Feels Safe at Home: Yes Safety Concerns: Feels Safe At This Time Assistive Devices: Glasses Review of Systems Review of Systems: All systems reviewed & are unremarkable except as noted in Subjective Constitutional: as per Subjective / HPI Eyes: as per Subjective / HPI Ear, Nose, Mouth, Throat: as per Subjective / HPI Respiratory: as per Subjective / HPI Cardiovascular: as per Subjective / HPI Gastrointestinal: as per Subjective / HPI Musculoskeletal: as per Subjective / HPI Integumentary: as per Subjective / HPI Neurologic: as per Subjective / HPI Psychiatric: as per Subjective / HPI Endocrine: as per Subjective / HPI Hematologic / Lymphatic: as per Subjective / HPI Allergy / Immunological: as per Subjective / HPI Exam (Neuro) Physical Exam: HEENT: normocephalic Neuro: Mental: AOx4, fluent speech, normal comprehension, no apraxia, no L/R confusion, no neglect CN: PERRL, Full EOM, symmetric face, intact sensation t/o face, midline T/U/P, 5/5 SCM/traps. Motor: No abnormal movements, normal tone and bulk, 5/5 t/o bilaterally Sens: intact to touch b/l grossly Coord: intact FNT b/l DTR: 2+ sym b/l Gait: intact grossly Impression:58 yo male with small ischemic stroke left basal ganglia, nonfocal exam and doing well. pt not taking his meds likely contributed. Recommendations: 1. Standard stroke work up as planned 2. antiplatelet therapy: * DAPT (dual antiplatelet therapy): start for pts with ABCD2 score 4 or higher. Initial loading dose with ASA 325mg and Plavix 300mg (if pt has not been started), then ASA 81mg daily and Plavix 75mg daily. Continue DAPT for 21 days if found small vessel disease only or continue for 90 days if found to have intracranial large artery atherosclerosis. After that, can continue single antiplatelet therapy (either ASA or Plavix). 3. Images: echo negative. 4. Permissive Hypertension for next 24 h rs. Keep SBP goal range less than 220. Avoid hypotension. Do not stop beta-horacio if on it. 5. If noted for large intracranial vesse l stenosis, slow reduction of BP and allowing permissive HTN next 5-7 days. 6. Long-term SBP goal less than 130. 7. Plenty of hydration including IV flui d if possible (use isotonic solution) next 1-2 days. Avoid hypovolemia and hypotension. 8. Initiate DVT prevention therapy. 9. Avoid hypoglycemia, serum glucose goa l during hospitalization: 140-180. 10. Long-term HgA1c goal less than 7. 11. Start statin if not on it and no abs olute contraindication, long-term LDL goal less than 70. 12. Head of bed up 30 degrees if possibl e. 13. Stroke education by nursing and appr opriate staff. 14. Telemetry monitoring. Consider care home cardiac monitoring, i.e. MCOT (mobile cardiac outpatient telemetry) or ICM (insertable hand mexican food maker, e.g. LINQ), if never had care home cardiac monitoring done previously. And if found to have atrial flutter or fibrillation, should consider anticoagulation therapy if no contraindication. 15. Fall precaution please call again if new question. Chart reviewed I have spent more than 50% educating patient about potential diagnosis and neurological evaluation and coordinating care with patient's treatment team. Total time spent (including chart review and coordination of care): 60 min (this includes chart review). Results & Data Vital Signs (Past 12 Hours) Vital Signs Temp Pulse Pulse Resp BP BP Pulse Ox 10/20/23 07:48 36.6 C 90 18 170/112 H 100 10/20/23 07:20 84 10/20/23 05:45 168/99 H 10/20/23 02:56 77 16 197/113 H 99 10/19/23 22:55 36.8 C 74 18 170/105 H 96 O2 Del Method 10/20/23 07:48 Room Air 10/20/23 07:20 10/20/23 05:45 10/20/23 02:56 Room Air 10/19/23 22:55 Room Air PG Care Time/CCT Total # of Minutes Spent Total Time Spent with Patient: Total time spent is greater than 50% in coordination of care (as documented) at patient's floor/unit and/or counseling patient: Coding Level of Care Code 76998 IN/OBS CONSULT LVL 4,60M Diagnoses Acute CVA (cerebrovascular accident) I63.9
--- NOTE | 2023-10-20 10:40 | Pharmacy Report ---
- Date of Service October 20, 2023 - Pharmacy CVA/TIA Medication Review Medications to Prevent Stroke handout has been added to the patients discharge packet. Antiplatelet(s) * DAPT with aspirin 81mg and Plavix 75mg daily Cholesterol * High intensity statin: rosuvastatin 20 mg daily inpatient (discharged on rosuvastatin 40mg) DVT Prophylaxis * Pharmacologic and mechanical DVT prophylaxis deferred due to patient being ambulatory and starting DAPT therapy Therapeutic Anticoagulation * No history of Afib/Aflutter noted Type 2 Diabetes * Patient has T2DM and patient is prescribed semaglutide and empagliflozin (Farxiga discontinued) upon discharge.
[2023-10-20] MEDS ORDERED: STROKE PATIENT DISCHARGE STA (12:44)
--- NOTE | 2023-10-20 13:01 | Discharge Summary ---
Date of Service October 20, 2023 Admission HPI Per Admitting Provider Sea Maier 58 year old male who presents to the ER with slurred speech and ambulatory dysfunction. He reports symptoms started yesterday with mild difficulty in getting out the right words, pausing more, thinking clearly but difficulty getting his words out. He was still not quite as clear today but decided to go to work when he noticed his balance was slightly off and bumping into tables. He has significant risk factors for cardiovascular disease and recently stopped taking all of his medications for diabetes, hypertension and hypercholesterolemia for the last few months. He stopped all of his medications as he just didn't like taking them as he felt they made him nauseous. He thinks his last HbA1C was approximately a year ago around 9 but was taking insulin that time. In addition he smokes 2 cigars a day but is now motivated to quit. He has a significant family history with his moth, grandmother, cousin dying in their 40s, 50s and 30s respectively with cardiovascular disease. He personally has never had a stroke or heart attack. His gave him x4 aspirin at home prior to arrival in the ER. Principal Diagnosis CVA Discharge Exam Constitutional: well-appearing, no acute distress HEENT: NCAT, no conjunctival injection CV: regular rhythm, no murmur appreciated, extremities well-perfused, no LE edema Resp: CTABL, no wheezes/rales/rhonchi appreciated, no increased work of breathing GI: soft, nondistended, nontender, BS normoactive MSK: no gross deformities appreciated Skin: warm, dry, no rash appreciated Neuro: alert, oriented,CN II-XII intact, strength 5/5 UE and LE B/L Discharge Data Allergies Allergy/AdvReac Type Severity Reaction Status Date / Time metformin AdvReac Intermediate Diarrhea Verified 10/20/23 16:40 Consultations 10/19/23 12:53 ED Decision to Admit Stat 10/19/23 13:41 Consult Neurology Routine Ordered Studies 10/19/23 11:28 CT head/brain wo con Stat 10/19/23 11:47 CT angio head w con Stat CT angio neck with con Stat 10/19/23 13:10 MRI Brain [MR brain wo con] Stat Hospital Course (1) Acute CVA (cerebrovascular accident): (1) Acute CVA (cerebrovascular accident): Suspected on CT head with acute symptoms of slurred speech and reduced balance Suspect on basis of small vessel disease given uncontrolled HTN, BP, Smoking Has not been taking home medications CTA negative for large vessel disease MRI Brain with An 11 x 7 mm acute left basal ganglia infarct. Outside window for TNK TTE without intraarterial shunt Would benefit from outpatient OT Neurology was consulted Plan for dual antiplatelet; clopidogrel + Aspirin (2) HTN (hypertension): Plan to start 20mg olmesartan (3) Insulin-requiring or dependent type II diabetes mellitus: Hemoglobin a1c= 9.9 Plan to d/c with jaundice, will likely need additional medications for blood glucose control. Discussed Ozempic, but declines at this time. (4) Hyperlipidemia: - plan to continue 40mg rosuvastatin (2) HTN (hypertension): (3) Insulin-requiring or dependent type II diabetes mellitus: (4) Hyperlipidemia: Total Time Total Time Spent Total Time Spent (In Minutes): greater than 30 Discharge Plan Discharge Items Patient Disposition: Home - Self-Care Reason For Visit: ACUTE CVA Discharge Diagnosis: Acute CVA Activity: Per Instructions section Non-emergency contact: Primary Care Provider Call non-emergency contact if: you have any medication questions and your symptoms worsen Follow-up/Referrals: Britt Saez DO [Resident] - PCP,NO [Primary Care Provider] - Diet: Regular Addtl Attending Provider Instructions: You were admitted for a stroke. We started you on a number of new medications which we sent to the pharmacy for you: - For high blood pressure: 20mg Olmesartan once daily - For High Cholesterol: 40mg Rosuvastatin once daily - For Stroke (antiplatelet medications): 81mg aspirin daily (if is over the counter, so you can buy at pharmacy), clopidogrel 75mg daily - For Diabetes: Jardiance daily, Ozempic which is a once weekly injection If you have any issues filling these prescriptions, please call [phone] and ask to leave a message for Dr. Saez. Take your medications as instructed; do not skip a dose of your medicines. Make sure all of your doctors know every medicine you are taking (including uvxo-vns-bqyniqj medicines, vitamins, and supplements). Call your primary care provider before taking any new medicines (including over- the-counter medicines, vitamins, and supplements), because some of these may interact with your current medications, or may make your symptoms worse. Tell your primary care provider if you cannot afford your medications. It is important to take all of the medications prescribed. Good blood pressure control, lowering cholesterol and controlled the diabetes are all important factors in preventing future strokes. Working on diet and lifestyle modifications will also help with all of these factors. Limited sugars and carbs and trying to get more lean meats, fruits, and vegetables will all be helpful in getting your blood sugars to a desired range. You should follow up with primary care in the next week. [facility] should reach out to schedule an appointment in the next day, if you do not hear from them, please call to make an appointment. Pending Studies at Discharge: No Stand-Alone Forms: My [facility], Smoking Cessation, Medications to Prevent Stroke Medications and DC Order Prescriptions: New clopidogrel 75 mg Tablet 75 mg PO QAM 30 Days Qty: 30 0RF olmesartan 20 mg tablet 20 mg PO DAILY Qty: 30 2RF rosuvastatin 40 mg tablet 40 mg PO DAILY Qty: 30 2RF empagliflozin 10 mg tablet 10 mg PO DAILY Qty: 30 2RF Continued aspirin 81 mg capsule 81 mg PO DAILY (DME) OneTouch Ultra Test Strip See Rx Instructions .Route Rx Instructions: As directed Discontinued amlodipine 5 mg tablet 5 mg PO DAILY Basaglar KwikPen U-100 Insulin 100 unit/mL (3 mL) insulin pen 30 unit subcut HS rosuvastatin [Crestor] 10 mg tablet 10 mg PO DAILY Farxiga 10 mg tablet 10 mg PO DAILY omega-3 fatty acids [Fish Oil Concentrate] 1,000 mg capsule 2,000 mg PO BID hydrochlorothiazide 25 mg tablet 25 mg PO DAILY lisinopril 40 mg tablet 40 mg PO DAILY metformin 500 mg tablet 500 mg PO TID multivitamin Tablet 1 tab PO DAILY No Action (DME) pen needle, diabetic [BD Ultra-Fine Orig Pen Needle] 29 gauge x 1/2" needle See Rx Instructions .Route Rx Instructions: Use 1 per day with insulin injection (DME) lancets [OneTouch UltraSoft Lancets] [facility] [place] See Rx Instructions .Route Rx Instructions: As directed Ozempic 0.25 mg or 0.5 mg (2 mg/3 mL) pen injector 0.25 mg subcut WK Rx Instructions: Once weekly injection Discharge Orders: Discharge Order (Routine); Ordered 10/20/23 Ordered By: Britt Saez Admission Data Admit Date/Time: 10/19/23 13:31 Attending Provider: Amado Padgett Admit Provider: Zachary Carmichael Primary Care Provider: PCP,NO Other Providers: Zachary Carmichael; Christoph Green Other Interventions: Discharge Summary Assessment (RN) Last Done: 10/20/23 13:13 Supervising Physician Co-Signing Physician Notes I personally examined the patient and verified all aragon points of history and exam, discussed case, and agree with decision making with Dr Saez feeling good, feeling up to going home. His speech has almost returned to normalhis notes that he has a little bit of a lisp with his S sounds that is not normal for him. He notes a little bit of difficulty not to much getting the right words out anymore, but whenever he is trying to type or text he noted things moving very slowly. His ambulation is now steadyshe no longer feels dizzy or weak. In discussion of lifestyleshe notes that he eats overall fairly healthywe reviewed a typical breakfast, lunch, dinner, snacksand generally he eats quite well. They do note that 3-4 days a week they eat out during which time things are fairly poor, but the rest of his diet actually sounds surprisingly low in carbohydrates, may be moderate in saturated fats, but otherwise quite healthy. He does not exercise on any basis at all. Vitals noted, in general he is awake and alert pleasant no distress. HEENT no rmocephalic atraumatic mucous membranes moist. Breathing unlabored no accessory muscle use good effort. Skin without rashes pallor icterus. Neuro without obvious focal deficits, although the longer we have to talk, the more I can see maybe the slightest slowness to his speech or maybe the slightest slurring of words. CVA - appears to be intracranial atherosclerosis, which appears to be due to uncontrolled diabetes, hyperlipidemia, and hypertension - he stopped all his medicines a while agoon chart review and in discussion with the patient, it seems the metformin was upsetting his stomach, and in frustration from feeling lousy all the time he just ended up stopping all of his meds and essentially being lost to follow-up. - We discussed restarting medications, and discussed that there is really no need to endure lousy side effects given how many different options are available to treat things like hypertension diabetes and dyslipidemia - discussed exercise in depth with a goal of 20-30 minutes of light cardiovascular exercise every day - discussed healthy eatingand in this context I mentioned quite clearly that his eating habits seem much better than his A1c would suggestand this leaves 3 main possibilities that I could see: 1) he has a heavy genetic influence on type 2 diabetes 2) he is eating more simple/starchy carbohydrates than he realizes on diet recall (which will show up with postprandial glucose monitoring) or 3) he could possibly be slowly developing latent autoimmune diabetes of adulthood (recommend checking a C-peptide and working up further from there) - he has a continuous glucose monitorwe discussed starting to use it and following his glucoses especially postprandial to learn from foods - close outpatient PCP follow-up with Dr. Saez - connor/enedina for home, otherwise as above
--- NOTE | 2023-10-20 18:20 | Billing Data ---
Date of Service October 20, 2023 Coding Level of Care Code 98818 INP/OBS DISCH >30 MIN
== END 2023-10-20 14:46 | disposition home or self-care (01) | DRG 66 ==
LOC: ED 11:22 → EDINP 13:31 → SUATTDRO 13:31 → 2S 13:37
DX: F17.290 Nicotine dependence, other tobacco product, uncomplicated; I63.81 Other cerebral infarction due to occlusion or stenosis of small artery; E78.5 Hyperlipidemia, unspecified; Z79.4 Long term (current) use of insulin; Z79.82 Long term (current) use of aspirin; R47.81 Slurred speech; E11.22 Type 2 diabetes mellitus with diabetic chronic kidney disease; N18.9 Chronic kidney disease, unspecified; R27.0 Ataxia, unspecified; I12.9 Hypertensive chronic kidney disease with stage 1 through stage 4 chronic kidney disease, or unspecified chronic kidney disease; E78.00 Pure hypercholesterolemia, unspecified; Z79.84 Long term (current) use of oral hypoglycemic drugs

== ENCOUNTER 2023-10-20 15:51 | Observation (INO) ==
[2023-10-20] MEDS ORDERED: LABETALOL HCL IV 5 MG/ML 20ML IV STA ×2 (16:22→17:39)
[2023-10-20 16:29] LABS: Basophils # (auto) 0.02 K/uL (0.00-0.20); Basophils % (auto) 0.3 %; Eosinophils # (auto) 0.03 K/uL (0.00-0.50); Eosinophils % (auto) 0.4 %; Hemoglobin 14.9 g/dl (14.0-18.0); Immature Granulocytes # (auto) 0.03 K/uL (0.01-0.20); Immature Granulocytes % (auto) 0.4 %; Lymphocytes # (auto) 1.51 K/uL (1.20-3.40); Lymphocytes % (auto) 22.1 %; Mean Corpuscular Hemoglobin 31.5 pg (25.0-34.0); Mean Corpuscular Hgb Conc 34.7 g/dL (32.0-36.0); Mean Corpuscular Volume 90.9 fL (80.0-100.0); Mean Platelet Volume 10.7 fL (9.4-12.4); Monocytes # (auto) 0.48 K/uL (0.11-0.59); Neutrophils # (auto) 4.76 K/uL (1.40-6.50); Neutrophils % (auto) 69.8 %; Platelet Count 229 K/uL (130-400); RDW Coefficient of Variation 12.1 % (11.5-14.5); RDW Standard Deviation 40.5 fL (36.4-46.3); Red Blood Count 4.73 M/uL (4.70-6.10); White Blood Count 6.83 K/ul (4.8-10.8)
--- NOTE | 2023-10-20 16:29 | CT Scan Report ---
CT SCAN OF THE BRAIN WITHOUT IV CONTRAST CLINICAL HISTORY: Headache. Recent stroke COMPARISON STUDY: CT an MRI of the brain dated 10/19/2023. TECHNIQUE: Unenhanced axial CT scan of the brain is performed from the vertex to the skull base. A do se lowering technique was utilized adhering to the principles of ALARA. CT DOSE: 547.75 mGy.cm FINDINGS: Brain parenchyma: A small evolving lacunar infarct is noted in the left basal ganglia. This is seen o n image #13. There is age-related involutional change noting mild microangiopathic disease. There is no hemorrhage, mass effect, or evidence of acute territorial ischemia by CT criteria. Xiong-white mahamed er differentiation is preserved. No extra-axial fluid collection is seen. Ventricles, sulci, cisterns: Prominent secondary to involutional change. Intracranial vasculature: There is mild atherosclerotic calcification of the cavernous carotid arteri es. Calvarium: Unremarkable. Sinuses and mastoids: The visualized paranasal sinuses are clear. The mastoid air cells are well pneu matized. Cerumen is noted in the external auditory canals. Orbits: The bony orbits are grossly intact. IMPRESSION: 1. There is no hemorrhage, mass effect, or evidence of acute territorial ischemia by CT criteria. 2. Small evolving lacunar infarct in the left basal ganglia. ACT 112: Negative or not required by law. Electronically signed by: Redd Mcbride M.D. 10/20/2023 4:27 PM
[2023-10-20] MEDS ORDERED: KETOROLAC TROMETHAMINE 15 MG/ML VIAL IV STA (16:34)
--- NOTE | 2023-10-20 16:35 | Emergency Department Note ---
Impression & Plan Headache, Hypertensive urgency ED Provider Note Provider: Sadi Roldan MD DATE OF SERVICE: 10/20/2023 CHIEF COMPLAINT: Headache, feeling off HISTORY OF PRESENT ILLNESS: Patient is a 58-year-old gentleman past medical history of hypertension, hyperlipidemia, type 2 diabetes, with recent admission to care the last 2 days for CVA. Evidently came in on Thursday with some slight speech issues according to patient and family in the room. Diagnosed with stroke and discharged earlier this afternoon. States just prior to discharge is getting changed to the onset of a headache around 1 PM. Frontal around the eyes with some light sensitive but no nausea. No syncope. No trauma. Denies any new numbness or tingling. Does not report a significant history of headaches. Does report he received Tylenol for this prior to discharge. More fatigued and feeling foggy according to the patient. As such came back for evaluation. No chest pain, palpitations, shortness of breath, or abdominal pain reported. No pain into the neck reported. PAST MEDICAL HISTORY: As noted above MEDICATIONS: Reviewed medication list includes aspirin and Plavix currently SOCIAL HISTORY: Non-smoker PHYSICAL EXAM: GENERAL: alert and oriented in no acute distress on stretcher eyes closed but easily arousable to verbal stimuli Head: normocephalic and atraumatic EYES: No injection, discharge or icterus. PERRL, EOMI. NECK: Trachea midline. Supple. ENT: Mucous membranes pink and moist. LUNGS: Airway patent. No retractions or tachypnea HEART: Regular rate and rhythm. No chest wall tenderness ABDOMEN: Soft and non-tender, without guarding or rebound. SKIN: Acyanotic, warm, dry, without rashes EXTREMITIES: Without swelling, tenderness or deformity NEUROLOGICAL: No focal deficits. No aphasia. No facial droop without any appreciable slurred speech to. Tongue midline normal strength and tone in the extremities. Sensation to gross touch normal in face and all 4 extremities symmetric. Ambulatory. EK bpm normal sinus rhythm. No PVC or PAC. No acute ST segment elevation with some lateral T wave flattening and nonspecific inferior T wave changes. QTc 431. CONTINUOUS CARDIAC MONITORING: was ordered and showed a heart rate of 70s bpm in normal sinus rhythm Patient's laboratory studies and imaging reviewed. Differential includes Migraine headache, meningitis, sinusitis, CO exposure, ICH, SAH, infection, tumor, headache, sinus thrombosis, arterial dissection, as well as other pathologies. IMPRESSION/MEDICAL DECISION MAKING: Headache. Recent stroke. On aspirin and Plavix but no trauma or LOC or syncope. Feeling foggy and not himself. Noted to be significantly hypertensive upon arrival. Sent for CT of the head immediately without acute finding per radiology report and I reviewed the images for new acute bleed. Had vessel imaging yesterday that was reassuring without evidence of aneurysm. Not having any significant focal neurological deficit. No seizure activity reported. Did send respiratory viral panel but more sudden onset seems somewhat atypical for being related to this. May be related to his significant hypertension. Did have some Tylenol earlier. Given a small dose of Toradol here. Not reporting any nausea. Do not believe given his hypertension and recent stroke as well as lack of new for significant focal neurological deficit he is a thrombolytic candidate and does not seem that typical of worsening stroke given lack of deficit only some "fogginess "and headache. Not significantly unsteady or discoordinated. Basic blood obtained here without anemia or leukocytosis. Very slight hypokalemia 3.3 but no other significant electrolyte abnormality or signs of any renal dysfunction. No LFT abnormalities noted. Respiratory viral panel negative. Patient without real change on reassessment. Given additional dose of labetalol. Did send for CT angiograms of the head and neck to exclude any vasospasm or RCVS component that may be at play here. Reports for these reviewed without significant abnormality reported. Could simply be related to hypertensive urgency. Condition on reassessment slight improvement of headache and is more awake and alert now. Family reports he was more anxious and seemed little bit disoriented at home but is more oriented here. Doubt this is infectious. Giving ongoing symptoms they wish to stay for further evaluation. Blood pressure still elevated. Will defer to hospitalist additional ongoing blood pressure treatment. Discussed with the hospitalist team here. DIAGNOSIS: Headache, hypertensive urgency DISPOSITION: Hospitalist will evaluate Patient was agreeable with this plan. Past Med/Surg History Medical History (Updated 10/20/23 @ 22:43 by Sadi Roldan M.D.) Oral mucosal lesion CKD (chronic kidney disease) Overweight (BMI 25.0-29.9) Hyperlipidemia HTN (hypertension) Insulin-requiring or dependent type II diabetes mellitus Uncontrolled type 2 diabetes mellitus Surgical History History of colonoscopy 09/01/2018 Family History Mother Myocardial infarction Grandmother (Maternal) Diabetes Other Hypertension Social History (Updated 08/21/22 @ 09:24 by APOLINAR Aiken) Smoking Status: Never smoker Tobacco Type: Cigars Cigarettes Per Day: Smokes cigars twice a week; Second Hand Exposure: No; Do You Dip or Chew Tobacco: No; Hx Alcohol Use: Yes Alcohol type: hard liquor Alcohol Intake Frequency: 2-3 x/Week Alcohol Intake Frequency Comment: A cocktail 3 times week Hx Substance Use: No Preferred Language: Telugu Communication Ability: Effective Sales Trainer Required: No Beliefs That Will Affect Care: None Current Living Situation: Spouse Feels Safe at Home: Yes Assistive Devices: Glasses Allergies Allergies Allergy/AdvReac Type Severity Reaction Status Date / Time metformin AdvReac Intermediate Diarrhea Verified 10/20/23 16:40 Home Meds Home Medications Medication Instructions Recorded Confirmed aspirin 81 mg capsule 81 mg PO DAILY 07/12/21 10/20/23 blood sugar diagnostic (OneTouch 07/12/21 08/21/22 Ultra Test strips) lancets ([email or web address] UltraSoft 07/12/21 10/20/23 Lancets) pen needle, diabetic 29 gauge x 07/12/21 10/20/23 1/2" (BD Ultra-Fine Original Pen Needle) semaglutide 0.25 mg or 0.5 mg (2 0.25 mg subcut WK 10/20/23 10/20/23 mg/3 mL) subcutaneous pen injector (AstroloMe) Previous Rx's Medication Instructions Recorded clopidogrel 75 mg tablet 75 mg PO QAM 30 days #30 tabs 10/20/23 empagliflozin 10 mg tablet 10 mg PO DAILY #30 tabs 10/20/23 olmesartan 20 mg tablet 20 mg PO DAILY #30 tabs 10/20/23 rosuvastatin 40 mg tablet 40 mg PO DAILY #30 tabs 10/20/23 Results & Data (ED) Vital Signs Vital Signs - 24 hr 10/20/23 15:55 10/20/23 16:06 10/20/23 16:23 Temperature 36.3 C L Temperature Source Temporal Artery Scan Pulse Rate 79 Pulse Rate [Left Apical] 75 Pulse Rhythm [Left Apical] Pulse Strength [Left Apical] Respiratory Rate 19 16 Respiratory Effort / Characteristics Non-Labored Spontaneous Respiratory Depth Normal Blood Pressure 204/118 H Blood Pressure [Right Arm] 215/121 H Blood Pressure Mean 146 Blood Pressure Mean [Right Arm] 152 Pulse Oximetry 99 98 99 Oxygen Delivery Method Room Air Room Air Room Air Sepsis Recent Fever Within 48 Hours No Sepsis New/Unexplained Change in Mental Status N/A Sepsis Action Taken by Nursing No Action Required 10/20/23 16:29 10/20/23 16:30 10/20/23 16:32 Temperature Temperature Source Pulse Rate 75 Pulse Rate [Left Apical] 77 74 Pulse Rhythm [Left Apical] Regular Regular Pulse Strength [Left Apical] Normal Normal Respiratory Rate 16 20 Respiratory Effort / Characteristics Non-Labored Spontaneous Non-Labored Spontaneous Respiratory Depth Normal Normal Blood Pressure 206/117 H Blood Pressure [Right Arm] 211/115 H 196/110 H Blood Pressure Mean Blood Pressure Mean [Right Arm] 147 138 Pulse Oximetry 97 98 Oxygen Delivery Method Room Air Room Air Sepsis Recent Fever Within 48 Hours Sepsis New/Unexplained Change in Mental Status Sepsis Action Taken by Nursing 10/20/23 16:39 10/20/23 16:46 10/20/23 17:09 Temperature Temperature Source Pulse Rate 69 Pulse Rate [Left Apical] 72 73 Pulse Rhythm [Left Apical] Regular Regular Pulse Strength [Left Apical] Normal Normal Respiratory Rate 16 16 Respiratory Effort / Characteristics Non-Labored Spontaneous Non-Labored Spontaneous Respiratory Depth Normal Normal Blood Pressure Blood Pressure [Right Arm] 187/108 H 172/102 H Blood Pressure Mean Blood Pressure Mean [Right Arm] 134 125 Pulse Oximetry 97 95 Oxygen Delivery Method Room Air Room Air Sepsis Recent Fever Within 48 Hours Sepsis New/Unexplained Change in Mental Status Sepsis Action Taken by Nursing 10/20/23 17:25 10/20/23 18:39 10/20/23 19:00 Temperature Temperature Source Pulse Rate 69 69 Pulse Rate [Left Apical] 74 Pulse Rhythm [Left Apical] Pulse Strength [Left Apical] Respiratory Rate 14 Respiratory Effort / Characteristics Respiratory Depth Blood Pressure 176/102 H 189/109 H Blood Pressure [Right Arm] 187/104 H Blood Pressure Mean Blood Pressure Mean [Right Arm] 131 Pulse Oximetry 98 Oxygen Delivery Method Sepsis Recent Fever Within 48 Hours Sepsis New/Unexplained Change in Mental Status Sepsis Action Taken by Nursing 10/20/23 20:00 Temperature Temperature Source Pulse Rate Pulse Rate [Left Apical] 75 Pulse Rhythm [Left Apical] Pulse Strength [Left Apical] Respiratory Rate 18 Respiratory Effort / Characteristics Respiratory Depth Blood Pressure Blood Pressure [Right Arm] 193/120 H Blood Pressure Mean Blood Pressure Mean [Right Arm] 144 Pulse Oximetry 100 Oxygen Delivery Method Room Air Sepsis Recent Fever Within 48 Hours Sepsis New/Unexplained Change in Mental Status Sepsis Action Taken by Nursing Laboratory Data 10/20/23 16:06 10/20/23 16:06 Lab Results 10/20/23 10/20/23 Range/Units 16:06 16:07 WBC 6.83 (4.8-10.8) K/ul RBC 4.73 (4.70-6.10) M/uL Hgb 14.9 (14.0-18.0) g/dl Hct 43.0 (42.0-52.0) % MCV 90.9 (80.0-100.0) fL MCH 31.5 (25.0-34.0) pg MCHC 34.7 (32.0-36.0) g/dL RDW Std Deviation 40.5 (36.4-46.3) fL RDW Coeff of Lidia 12.1 (11.5-14.5) % Plt Count 229 (130-400) K/uL MPV 10.7 (9.4-12.4) fL Immature Gran % (Auto) 0.4 % Neut % (Auto) 69.8 % Lymph % (Auto) 22.1 % Marion % (Auto) 7.0 % Eos % (Auto) 0.4 % Baso % (Auto) 0.3 % Neut # (Auto) 4.76 (1.40-6.50) K/uL Lymph # (Auto) 1.51 (1.20-3.40) K/uL Marion # (Auto) 0.48 (0.11-0.59) K/uL Eos # (Auto) 0.03 (0.00-0.50) K/uL Baso # (Auto) 0.02 (0.00-0.20) K/uL Immature Gran # (Auto) 0.03 (0.01-0.20) K/uL PT 10.9 (9.0-12.0) Seconds INR 1.0 (0.9-1.1) Sodium 139 (136-145) mmol/L Potassium 3.3 L (3.5-5.1) mmol/L Chloride 102 (98-107) mmol/L Carbon Dioxide 28 (21-32) mmol/L Anion Gap 9 (3-11) BUN 17 (6-23) mg/dl Creatinine 1.18 (0.6-1.4) mg/dl Est Cr Clr Drug Dosing 64.4 ml/min Est GFR ( Amer) 77.3 ml/min Est GFR (Non-Af Amer) 66.7 ml/min BUN/Creatinine Ratio 14.4 (10-20) Glucose 108 H (70-99(Fasting)) mg/dl Calcium 10.3 (8.6-10.3) mg/dl Total Bilirubin 0.8 (0.2-1.0) mg/dl AST 21 (13-39) U/L ALT 33 (7-52) U/L Alkaline Phosphatase 79 (34-104) U/L Troponin I High Sens 9.0 (0-20) pg/ml Total Protein 8.0 (6.0-8.3) gm/dl Albumin 4.7 (3.4-5.0) gm/dl Globulin 3.3 (2.5-4.0) gm/dl Albumin/Globulin Ratio 1.4 (0.9-2) Adenovirus (PCR) Not Detected (NotDetected) B. pertussis DNA (PCR) Not Detected (NotDetected) B.parapertussis DNA PCR Not Detected (NotDetected) C. pneumoniae DNA (PCR) Not Detected (NotDetected) Coronavirus OC43 (PCR) Not Detected (NotDetected) Coronavirus HKU1 (PCR) Not Detected (NotDetected) Coronavirus 229E (PCR) Not Detected (NotDetected) SARS-CoV-2 (PCR) Not Detected (NotDetected) Coronavirus NL63 (PCR) Not Detected (NotDetected) Human Metapneumovir PCR Not Detected (NotDetected) Influenza Type A (PCR) Not Detected (NotDetected) Influenza Type B (PCR) Not Detected (NotDetected) M. pneumoniae (PCR) Not Detected (NotDetected) Parainfluenza 1 (PCR) Not Detected (NotDetected) Parainfluenza 2 (PCR) Not Detected (NotDetected) Parainfluenza 3 (PCR) Not Detected (NotDetected) Parainfluenza 4 (PCR) Not Detected (NotDetected) RSV (PCR) Not Detected (NotDetected) Entero/Rhino (PCR) Not Detected (NotDetected) Administered Medications Discontinued Medications Hydralazine HCl (Hydralazine Hcl 20 Mg/Ml Vial) 5 mg IV NOW ONE Stop: 10/20/23 19:32 Last Admin: 10/20/23 20:06 Dose: Not Given Documented By: LYEDA Ioversol (Optiray 320 125ml) 118 ml IV ONCE ONE Stop: 10/20/23 18:49 Last Admin: 10/20/23 18:48 Dose: 118 ml Documented By: JUAN Ketorolac Tromethamine (Ketorolac Tromethamine 15 Mg/Ml Vial) 10 mg IV NOW STA Stop: 10/20/23 16:35 Last Admin: 10/20/23 16:45 Dose: 10 mg Documented By: ROBBIN Labetalol HCl (Labetalol Hcl Iv 5 Mg/Ml 20ml) 10 mg IV NOW STA Stop: 10/20/23 16:23 Last Admin: 10/20/23 16:30 Dose: 10 mg Documented By: ROBBIN Co-signed By: SUSY Labetalol HCl (Labetalol Hcl Iv 5 Mg/Ml 20ml) 10 mg IV NOW STA Stop: 10/20/23 17:40 Last Admin: 10/20/23 17:47 Dose: 10 mg Documented By: ROBBIN Co-signed By: SUSY Metoclopramide HCl (Metoclopramide Hcl Inj 5 Mg/Ml 2 Ml Vial) 5 mg IV ONE ONE Stop: 10/20/23 17:40 Last Admin: 10/20/23 17:47 Dose: 5 mg Documented By: ROBBIN Potassium Chloride (Potassium Chloride Crtab 20 Meq Tabcr) 40 meq PO NOW STA Stop: 10/20/23 20:27 Last Admin: 10/20/23 21:31 Dose: 40 meq Documented By: LEYDA Imaging Data Radiologist's Impression: Head CT 10/20/23 16:02 CT SCAN OF THE BRAIN WITHOUT IV CONTRAST CLINICAL HISTORY: Headache. Recent stroke COMPARISON STUDY: CT an MRI of the brain dated 10/19/2023. TECHNIQUE: Unenhanced axial CT scan of the brain is performed from the vertex to the skull base. A dose lowering technique was utilized adhering to the principles of ALARA. CT DOSE: 547.75 mGy.cm FINDINGS: Brain parenchyma: A small evolving lacunar infarct is noted in the left basal ganglia. This is seen on image #13. There is age-related involutional change noting mild microangiopathic disease. There is no hemorrhage, mass effect, or evidence of acute territorial ischemia by CT criteria. Xiong-white matter differentiation is preserved. No extra-axial fluid collection is seen. Ventricles, sulci, cisterns: Prominent secondary to involutional change. Intracranial vasculature: There is mild atherosclerotic calcification of the cavernous carotid arteries. Calvarium: Unremarkable. Sinuses and mastoids: The visualized paranasal sinuses are clear. The mastoid air cells are well pneumatized. Cerumen is noted in the external auditory canals. Orbits: The bony orbits are grossly intact. IMPRESSION: 1. There is no hemorrhage, mass effect, or evidence of acute territorial ischemia by CT criteria. 2. Small evolving lacunar infarct in the left basal ganglia. ACT 112: Negative or not required by law. Electronically signed by: Redd Mcbride M.D. 10/20/2023 4:27 PM Head CTA 10/20/23 17:39 Exam(s): CTA HEAD With Contrast IV Amt: 118 cc opti 320 EXAM: CT Angiography Head With Intravenous Contrast CLINICAL HISTORY: Reason for exam: headache, confusion. TECHNIQUE: Axial computed tomographic angiography images of the head with intravenous contrast. CTDI is 8 29.23 mGy and DLP is 492.33 mGy-cm. Automated exposure control was utilized for the study. A dose lowering technique was utilized adhering to the principles of ALARA. MIP reconstructed images were created and reviewed. CONTRAST: Patient received 118 cc opti 320 of IV contrast COMPARISON: No relevant prior studies available. FINDINGS: Right internal carotid artery: No acute findings. Intracranial segment is patent with no significant stenosis. No aneurysm. Right anterior cerebral artery: Unremarkable. No occlusion or significant stenosis. No aneurysm. Right middle cerebral artery: Unremarkable. No occlusion or significant stenosis. No aneurysm. Right posterior cerebral artery: Unremarkable. No occlusion or significant stenosis. No aneurysm. Right vertebral artery: Unremarkable as visualized. Left internal carotid artery: No acute findings. Intracranial segment is patent with no significant stenosis. No aneurysm. Left anterior cerebral artery: Unremarkable. No occlusion or significant stenosis. No aneurysm. Left middle cerebral artery: Unremarkable. No occlusion or significant stenosis. No aneurysm. Left posterior cerebral artery: Unremarkable. No occlusion or significant stenosis. No aneurysm. Left vertebral artery: Unremarkable as visualized. Basilar artery: Unremarkable. No occlusion or significant stenosis. No aneurysm. IMPRESSION: No evidence of large vessel occlusion, large aneurysm or critical stenosis Electronically signed by: Nicole Feliz MD 10/20/23 19:34 PM Neck CTA 10/20/23 17:39 Exam(s): CTA NECK With Contrast IV Amt: 118 cc opti 320 EXAM: CT Angiography Neck With Intravenous Contrast CLINICAL HISTORY: Reason for exam: headache, confusion. TECHNIQUE: Routine carotid CT angiography protocol was performed with intravenous contrast. NASCET criteria using the distal ICAs for comparison were used for evaluation of stenoses. CTDI is 29.23 mGy and DLP is 492.33 mGy-cm. Automated exposure control was utilized for the study. A dose lowering technique was utilized adhering to the principles of ALARA. MIP reconstructed images were created and reviewed. CONTRAST: Patient received 118 cc opti 320 of IV contrast COMPARISON: CT of the neck, yesterday FINDINGS: VASCULATURE: Right common carotid artery: Unremarkable. No occlusion or significant stenosis. No dissection. Right internal carotid artery: Unremarkable. Extracranial segment is patent with no occlusion or significant stenosis. No dissection. Right external carotid artery: Unremarkable. No occlusion. Right vertebral artery: Unremarkable. No occlusion or significant stenosis. No dissection. Left common carotid artery: Unremarkable. No occlusion or significant stenosis. No dissection. Left internal carotid artery: Unremarkable. Extracranial segment is patent with no occlusion or significant stenosis. No dissection. Left external carotid artery: Unremarkable. No occlusion. Left vertebral artery: Unremarkable. No occlusion or significant stenosis. No dissection. NECK: Bones/joints: Unremarkable. No acute fracture. Soft tissues: Unremarkable. Lung apices: Clear. CAROTID STENOSIS REFERENCE USING NASCET CRITERIA: % ICA stenosis = (1 - narrowest ICA diameter/diameter of distal cervical ICA) x 100. Mild - <50% stenosis. Moderate - 50-69% stenosis. Severe - 70-94% stenosis. Near occlusion - 95-99% stenosis. Occluded - 100% stenosis. IMPRESSION: No large aneurysm, large vessel occlusion or critical stenosis. Electronically signed by: Nicole Feliz MD 10/20/23 19:35 PM Discharge Plan Visit Data Chief Complaint: TIA Symptoms Stated Complaint: SUDDEN MIGRAIN, NON COHERENT, MINI STROKE RECENT ED Provider: Sadi Roldan Discharge Problem: Headache, Hypertensive urgency Patient Disposition: Admitted As Inpatient Discharge Instructions Interventions: ED Discharge Assessment Last Done: 10/20/23 21:43 Discharge Problem: Headache Qualifiers: Headache type: unspecified Headache chronicity pattern: acute headache I ntractability: intractable Qualified Code(s): R51.9 - Headache, unspecified
[2023-10-20 16:41] LABS: Albumin Globulin Ratio 1.4 (0.9-2); Albumin Level 4.7 gm/dl (3.4-5.0); BUN Creatinine Ratio 14.4 (10-20); Bilirubin,Total 0.8 mg/dl (0.2-1.0); Calcium 10.3 mg/dl (8.6-10.3); Creatinine Clr Calc Pharmacy 64.4 ml/min; Est GFR (African American) 77.3 ml/min; Est GFR (Non-African American) 66.7 ml/min; Globulin 3.3 gm/dl (2.5-4.0); Potassium 3.3 mmol/L (3.5-5.1)
[2023-10-20 16:51] LABS: Prothrombin Time 10.9 Seconds (9.0-12.0)
[2023-10-20 17:11] LABS: Adenovirus PCR Not Detected (NotDetected); Bordetella parapertussis PCR Not Detected (NotDetected); Bordetella pertussis PCR Not Detected (NotDetected); Chlamydia pneumoniae PCR Not Detected (NotDetected); Coronavirus 229E PCR Not Detected (NotDetected); Coronavirus CoV-2 (COVID19)PCR Not Detected (NotDetected); Coronavirus HKU1 PCR Not Detected (NotDetected); Coronavirus NL63 PCR Not Detected (NotDetected); Coronavirus OC43PCR Not Detected (NotDetected); Human Metapneumovirus PCR Not Detected (NotDetected); Influenza A PCR Not Detected (NotDetected); Influenza B PCR Not Detected (NotDetected); Mycoplasma pneumoniae PCR Not Detected (NotDetected); Parainfluenza Virus 1 PCR Not Detected (NotDetected); Parainfluenza Virus 2 PCR Not Detected (NotDetected); Parainfluenza Virus 3 PCR Not Detected (NotDetected); Parainfluenza Virus 4 PCR Not Detected (NotDetected); Respiratory Syncytial VirusPCR Not Detected (NotDetected); Rhinovirus/Enterovirus PCR Not Detected (NotDetected)
[2023-10-20] MEDS ORDERED: METOCLOPRAMIDE HCL INJ 5 MG/ML 2 ML VIAL IV ONE (17:39)
[2023-10-20] MEDS ORDERED: OPTIRAY 320 125ml IV ONE (18:48)
[2023-10-20] MEDS ORDERED: hydrALAZINE HCL 20 MG/ML VIAL IV ONE (19:31)
--- NOTE | 2023-10-20 19:35 | CT Scan Report ---
Exam(s): CTA HEAD With Contrast IV Amt: 118 cc opti 320 EXAM: CT Angiography Head With Intravenous Contrast CLINICAL HISTORY: Reason for exam: headache, confusion. TECHNIQUE: Axial computed tomographic angiography images of the head with intravenous contrast. CTDI is 8 29.23 mGy and DLP is 492.33 mGy-cm. Automated exposure control was utilized for the study. A dose lowering technique was utilized adhering to the principles of ALARA. MIP reconstructed images were created and reviewed. CONTRAST: Patient received 118 cc opti 320 of IV contrast COMPARISON: No relevant prior studies available. FINDINGS: Right internal carotid artery: No acute findings. Intracranial segment is patent with no significant stenosis. No aneurysm. Right anterior cerebral artery: Unremarkable. No occlusion or significant stenosis. No aneurysm. Right middle cerebral artery: Unremarkable. No occlusion or significant stenosis. No aneurysm. Right posterior cerebral artery: Unremarkable. No occlusion or significant stenosis. No aneurysm. Right vertebral artery: Unremarkable as visualized. Left internal carotid artery: No acute findings. Intracranial segment is patent with no significant stenosis. No aneurysm. Left anterior cerebral artery: Unremarkable. No occlusion or significant stenosis. No aneurysm. Left middle cerebral artery: Unremarkable. No occlusion or significant stenosis. No aneurysm. Left posterior cerebral artery: Unremarkable. No occlusion or significant stenosis. No aneurysm. Left vertebral artery: Unremarkable as visualized. Basilar artery: Unremarkable. No occlusion or significant stenosis. No aneurysm. IMPRESSION: No evidence of large vessel occlusion, large aneurysm or critical stenosis Electronically signed by: Nicole Feliz MD 10/20/23 19:34 PM
--- NOTE | 2023-10-20 19:36 | CT Scan Report ---
Exam(s): CTA NECK With Contrast IV Amt: 118 cc opti 320 EXAM: CT Angiography Neck With Intravenous Contrast CLINICAL HISTORY: Reason for exam: headache, confusion. TECHNIQUE: Routine carotid CT angiography protocol was performed with intravenous contrast. NASCET criteria using the distal ICAs for comparison were used for evaluation of stenoses. CTDI is 29.23 mGy and DLP is 492.33 mGy-cm. Automated exposure control was utilized for the study. A dose lowering technique was utilized adhering to the principles of ALARA. MIP reconstructed images were created and reviewed. CONTRAST: Patient received 118 cc opti 320 of IV contrast COMPARISON: CT of the neck, yesterday FINDINGS: VASCULATURE: Right common carotid artery: Unremarkable. No occlusion or significant stenosis. No dissection. Right internal carotid artery: Unremarkable. Extracranial segment is patent with no occlusion or significant stenosis. No dissection. Right external carotid artery: Unremarkable. No occlusion. Right vertebral artery: Unremarkable. No occlusion or significant stenosis. No dissection. Left common carotid artery: Unremarkable. No occlusion or significant stenosis. No dissection. Left internal carotid artery: Unremarkable. Extracranial segment is patent with no occlusion or significant stenosis. No dissection. Left external carotid artery: Unremarkable. No occlusion. Left vertebral artery: Unremarkable. No occlusion or significant stenosis. No dissection. NECK: Bones/joints: Unremarkable. No acute fracture. Soft tissues: Unremarkable. Lung apices: Clear. CAROTID STENOSIS REFERENCE USING NASCET CRITERIA: % ICA stenosis = (1 - narrowest ICA diameter/diameter of distal cervical ICA) x 100. Mild - <50% stenosis. Moderate - 50-69% stenosis. Severe - 70-94% stenosis. Near occlusion - 95-99% stenosis. Occluded - 100% stenosis. IMPRESSION: No large aneurysm, large vessel occlusion or critical stenosis. Electronically signed by: Nicole Feliz MD 10/20/23 19:35 PM
[2023-10-20] MEDS ORDERED: POTASSIUM CHLORIDE CRTAB 20 MEQ TABCR PO STA (20:26)
--- NOTE | 2023-10-20 20:27 | History & Physical Report ---
Date of Service October 20, 2023 Assessment & Plan (1) HTN (hypertension): Plan: -Pt presents back to ER with headache and severe hypertension shortly after discharge for CVA -This is likely a hypertensive emergency as workup does not suggest new acute CVA and report of confusion at home after discharge may represent hypertensive encephalopathy/end-organ damage -Neurology note 10/20 reviewed- recommendations for permissive HTN x24 hours -Given pt's hypertensive emergency at this time, we will treat HTN with PRN labetalol but maintain permissive HTN parameters of 185/110 -Labetalol IV PRN for HTN, Enalapril PRN if labetalol held for HR parameters -Continue home olmesartan (new prescription he has not started, will start in AM) (2) Acute CVA (cerebrovascular accident): Plan: -Noted recent ischemic stroke of L basal ganglia, most likely small-vessel CVA -Currently no evidence of new CVA on head CT, deferring MRI as last one was 10/19 -Neurology note from 10/20 reviewed -Head CT negative, head/neck CTA negative -Continue medications for secondary risk reduction -DAPT -High intensity statin -BP control as above (3) Hyperlipidemia: Plan: -Continue high intensity statin- rosuvastatin 20 mg (4) Insulin-requiring or dependent type II diabetes mellitus: Plan: -History of uncontrolled diabetes with last A1C 9.9% on 10/20 -Holding home Ozempic + Jardiance (new prescriptions he has not started yet) -Lantus, SSI in hospital- titrate dosing per BSG trend (5) Hypokalemia: Plan: -K 3.3 on admission -Repleted in ER -Monitor BMP Plan FENGI: DM2 Code status: Full DVT prophylaxis: Aspirin/Plavix + ambulation Isolation: None Unit: PCU Disposition planning: Anticipate home once BP improved History of Present Illness Chief Complaint: Headache Primary Care Provider: NO PCP Pt is 58 yo M with PMH IDDM2, HTN, HLD, recent CVA presenting with headache. Pt was recently admitted at [facility] from 10/19-10/20 for slurred speech + gait imbalance and found to have 11 x 7 mm acute L basal ganglia infarct on MRI, diagnosed with ischemic stroke attributed to vasculopathy given risk factors and medication non-adherence for past few months. Pt's stroke workup was otherwise largely negative, discharged today with new prescriptions including DAPT + rosuvastatin 20 mg, olmesartan 20 mg, Jardiance and Ozempic. Pt states he felt groggy and weak shortly prior to discharge, with onset of severe pounding L sided headache retro-orbitally and over L jainism at around 1 PM. He reached home at 1:30 PM but felt progressively weaker with no improvement in headache despite receiving Tylenol before leaving hospital. He has also been more confused. Pt's speech mio has also been slightly delayed per at bedside and she brought him to ER for further evaluation at around 3:30 PM. Pt arrived to ER hypertensive with initial BPs largely 210ss/110s. Initial evaluation with K 3.3, unremarkable head CT, head CTA, neck CTA. CBC, CMP, RVP otherwise unremarkable. Did receive Toradol 10 mg IV, Reglan 5 mg IV for headache along with labetalol 10 mg IV x2 for HTN. At present, pt reports some improvement in headache since receiving medications- now 03/30 compared to 05/31 at onset. He is still speaking slower than usual but does not feel as weak. Allergies Allergy/AdvReac Type Severity Reaction Status Date / Time metformin AdvReac Intermediate Diarrhea Verified 10/20/23 16:40 Home Medications Medication Instructions Recorded Confirmed Type aspirin 81 mg capsule 81 mg PO DAILY 07/12/21 10/20/23 History blood sugar diagnostic (OneTouch 07/12/21 08/21/22 History Ultra Test strips) lancets (OneTouch UltraSoft 07/12/21 10/20/23 History Lancets) pen needle, diabetic 29 gauge x 07/12/21 10/20/23 History 1/2" (BD Ultra-Fine Original Pen Needle) clopidogrel 75 mg tablet 75 mg PO QAM 30 days #30 tabs 10/20/23 10/20/23 Rx empagliflozin 10 mg tablet 10 mg PO DAILY #30 tabs 10/20/23 10/20/23 Rx olmesartan 20 mg tablet 20 mg PO DAILY #30 tabs 10/20/23 10/20/23 Rx rosuvastatin 40 mg tablet 40 mg PO DAILY #30 tabs 10/20/23 10/20/23 Rx semaglutide 0.25 mg or 0.5 mg (2 0.25 mg subcut WK 10/20/23 10/20/23 History mg/3 mL) subcutaneous pen injector (Ozempic) Past Med/Surg History Medical History (Updated 10/20/23 @ 22:43 by Sadi Roldan M.D.) Oral mucosal lesion CKD (chronic kidney disease) Overweight (BMI 25.0-29.9) Hyperlipidemia HTN (hypertension) Insulin-requiring or dependent type II diabetes mellitus Uncontrolled type 2 diabetes mellitus Surgical History History of colonoscopy 09/01/2018 Family History Mother Myocardial infarction Grandmother (Maternal) Diabetes Other Hypertension Social History (Updated 08/21/22 @ 09:24 by APOLINAR Aiken) Smoking Status: Never smoker Tobacco Type: Cigars Cigarettes Per Day: Smokes cigars twice a week; Second Hand Exposure: No; Do You Dip or Chew Tobacco: No; Hx Alcohol Use: Yes Alcohol type: hard liquor Alcohol Intake Frequency: 2-3 x/Week Alcohol Intake Frequency Comment: A cocktail 3 times week Hx Substance Use: No Preferred Language: Bahraini Communication Ability: Effective Accounting Tutor Required: No Beliefs That Will Affect Care: None Current Living Situation: Spouse Feels Safe at Home: Yes Assistive Devices: Glasses Review of Systems Review of Systems: Per HPI/Subjective Physical Exam Physical Exam: General: well-appearing, no acute distress HEENT: PERRL, EOMI, conjunctivae clear without injection, anicteric sclerae, moist mucous membranes, clear oropharynx without exudate or erythema Neck: supple, trachea midline, no thyromegaly, no JVD, no cervical lymphadenopat hy CV: RRR, normal S1 and S2, no murmurs Resp: CTAB, no increased work of breathing, no crackles or wheezes Abd: Soft, nontender, nondistended, no guarding or rebound, no hepatosplenomegaly MSK: Normal bulk of all four extremities Neuro: AOx3, no focal motor or sensory deficits, no pronator drift, no facial droop. Reduced speech mio but no overt slurred speech. Skin: no rashes or lesions, warm and dry Ext: no LE peripheral edema or erythema, capillary refill <2s in all four extremities, 2+ LE peripheral pulses b/l Results & Data Results & Data Vital Signs (Past 12 Hours) Vital Signs Temp Pulse Pulse Resp BP BP Pulse Ox 10/20/23 18:39 69 189/109 H 10/20/23 17:25 69 176/102 H 10/20/23 17:09 73 16 172/102 H 95 10/20/23 16:46 69 10/20/23 16:39 72 16 187/108 H 97 10/20/23 16:32 74 20 196/110 H 98 10/20/23 16:30 75 206/117 H 10/20/23 16:29 77 16 211/115 H 97 10/20/23 16:23 99 10/20/23 16:06 75 16 215/121 H 98 10/20/23 15:55 36.3 C L 79 19 204/118 H 99 O2 Del Method 10/20/23 18:39 10/20/23 17:25 10/20/23 17:09 Room Air 10/20/23 16:46 10/20/23 16:39 Room Air 10/20/23 16:32 Room Air 10/20/23 16:30 10/20/23 16:29 Room Air 10/20/23 16:23 Room Air 10/20/23 16:06 Room Air 10/20/23 15:55 Room Air Code Status & VTE Plan VTE Prophylaxis Plan VTE Prophylaxis will be ordered: Yes Supervising Physician Co-Signing Physician Notes Patient seen and examined, chart reviewed, case discussed with Dr. Donaldson and I agree with the assessment and plan as above. In brief, patient is a 58yo male recently admitted to [facility] on 10/19/23 after presenting with slurred speech and ambulatory dysfunction. He was found to have an acute left basal ganglia infarct. He was ultimately discharged on 10/20/23 on DAPT with ASA and Plavix. He was to start Olmesartan for blood pressure control, Rosuvastatin 40mg daily and to resume diabetes medications. He returns to the ER with severe pounding left sided headache and progressive weakness as well as increased confusion. In the ER patient found to be hypertensive with BP in the 210's. He was given Toradol, Reglan and Labetalol He reports improvement in headache. Reports ongoing deficits from stroke to include very mild imbalance as well as difficulty typing on his I-pad and reading. Feels that these deficits are improving, however. No additional complaints at this time On exam he is afebrile, HTN Skin - intact, no rash HEENT - MMM, neck supple, PERRL Heart - +S1/S2, regular, no m/r/g Lungs - CTA Abd - soft, NT/ND Ext - warm, well perfused Labs and images reviewed Assessment/Plan Headache following acute CVA. Marked elevation in blood pressure on arrival - possibly hypertensive urgency. GAINES has improved with therapies delivered in the ER Will continue blood pressure control - gradual lowering. Resume home Labetalol. PRN Labetalol for BP > 185/110. -Continue DAPT with ASA and Plavix and Rosuvastatin -ISS Remainder of plan as above Resident Activity Tracking Resident Involvement: Resident Care Provided Care Provided: Adult Hospital Medicine
[2023-10-20] MEDS ORDERED: CARBOHYDRATES FOR HYPOGLYCEMIA PO PRN (21:58)
[2023-10-20] MEDS ORDERED: GLUCOSE 10 TAB/TUBE PO PRN (21:58)
[2023-10-20] MEDS ORDERED: GLUCAGON FOR INJ 1 MG VIAL SQ PRN (21:58)
[2023-10-20] MEDS ORDERED: GLUCOSE 40% GEL 15 GM TUBE PO PRN (21:58)
[2023-10-20] MEDS ORDERED: ENALAPRILAT 0.625 MG in SYRINGE 9.5 ML IV PRN (21:58)
[2023-10-20] MEDS ORDERED: PHARMACIST DISCHARGE MED REC CONSULT PRN (21:58)
[2023-10-20] MEDS ORDERED: LABETALOL HCL IV 5 MG/ML 20ML IV PRN (21:58)
[2023-10-20] MEDS ORDERED: DEXTROSE 50% 50 ML SYRINGE IV PRN (21:58)
[2023-10-20 22:21] LABS: Appearance Urine Clear (Clear); Bilirubin Urine Negative (Negative); Blood Urine Negative (Negative); Color Urine Yellow; Glucose Urine UA Negative (Negative); Ketones Urine Negative (Negative); Leukocyte Esterase Urine Negative (Negative); Nitrite Urine Negative (Negative); Protein Urine Negative (Negative); Specific Gravity Urine > 1.045 (1.000-1.030); Urobilinogen Urine Negative (Negative)
[2023-10-20] MEDS: INSULIN ASPART PER UNIT CHARGE SC SCH (22:53)
[2023-10-20] MEDS: LANTUS PER UNIT CHARGE SQ SCH (23:24)
[2023-10-20] MEDS: ACETAMINOPHEN 500 MG TAB PO SCH (23:25)
--- NOTE | 2023-10-21 00:05 | Billing Data ---
Date of Service October 20, 2023 Coding Level of Care Code 62699 INT INP/OBS CARE
[2023-10-21] MEDS: LANTUS PER UNIT CHARGE SQ SCH ×2 (04:32→08:54)
[2023-10-21] MEDS: ACETAMINOPHEN 500 MG TAB PO SCH ×2 (06:01→14:18)
[2023-10-21 06:37] LABS: Calcium 9.5 mg/dl (8.6-10.3); Creatinine Clr Calc Pharmacy 63.3 ml/min; Est GFR (African American) 75.7 ml/min; Est GFR (Non-African American) 65.3 ml/min; Potassium 4.2 mmol/L (3.5-5.1)
[2023-10-21] MEDS: INSULIN ASPART PER UNIT CHARGE SC SCH ×3 (08:54→16:57)
[2023-10-21] MEDS ORDERED: ROSUVASTATIN CALCIUM 20 MG TAB PO SCH (09:00)
[2023-10-21] MEDS ORDERED: LOSARTAN POTASSIUM 50 MG TAB PO SCH (09:00)
[2023-10-21] MEDS ORDERED: ASPIRIN 81 MG ECTAB PO SCH (09:00)
[2023-10-21] MEDS ORDERED: CLOPIDOGREL BISULFATE 75 MG TAB PO SCH (09:00)
[2023-10-21] MEDS ORDERED: LOSARTAN POTASSIUM 50 MG TAB PO ONE (09:15)
[2023-10-21] MEDS ORDERED: amLODIPine BESYLATE 5 MG TAB PO ONE (13:50)
--- NOTE | 2023-10-21 15:06 | Electrocardiogram Report ---
Test Reason : Blood Pressure : / mmHG Vent. Rate : 075 BPM Atrial Rate : 075 BPM P-R Int : 138 ms QRS Dur : 092 ms QT Int : 386 ms P-R-T Axes : 039 -25 082 degrees QTc Int : 431 ms Normal sinus rhythm Moderate voltage criteria for LVH, may be normal variant ( R in aVL ) Inferior infarct (cited on or before 19-OCT-2023) Abnormal ECG When compared with ECG of 19-OCT-2023 11:41, Criteria for Septal infarct are no longer Present Nonspecific T wave abnormality now evident in Inferior leads Nonspecific T wave abnormality, worse in Lateral leads Confirmed by Josh Figueroa ([id number]) on 10/21/2023 3:06:03 PM Referred By: Confirmed By:Josh Figueroa
--- NOTE | 2023-10-21 17:03 | Discharge Summary ---
Date of Service October 21, 2023 Admission HPI Per Admitting Provider Pt is 58 yo M with PMH IDDM2, HTN, HLD, recent CVA presenting with headache. Pt was recently admitted at [facility] from 10/19-10/20 for slurred speech + gait imbalance and found to have 11 x 7 mm acute L basal ganglia infarct on MRI, diagnosed with ischemic stroke attributed to vasculopathy given risk factors and medication non-adherence for past few months. Pt's stroke workup was otherwise largely negative, discharged today with new prescriptions including DAPT + rosuvastatin 20 mg, olmesartan 20 mg, Jardiance and Ozempic. Pt states he felt groggy and weak shortly prior to discharge, with onset of severe pounding L sided headache retro-orbitally and over L alevism at around 1 PM. He reached home at 1:30 PM but felt progressively weaker with no improvement in headache despite receiving Tylenol before leaving hospital. He has also been more confused. Pt's speech mio has also been slightly delayed per at bedside and she brought him to ER for further evaluation at around 3:30 PM. Pt arrived to ER hypertensive with initial BPs largely 210ss/110s. Initial evaluation with K 3.3, unremarkable head CT, head CTA, neck CTA. CBC, CMP, RVP otherwise unremarkable. Did receive Toradol 10 mg IV, Reglan 5 mg IV for headache along with labetalol 10 mg IV x2 for HTN. At present, pt reports some improvement in headache since receiving medications- now 7/10 compared to 9/10 at onset. He is still speaking slower than usual but does not feel as weak. Principal Diagnosis HTN, CVA Discharge Exam Constitutional: well-appearing, no acute distress HEENT: NCAT, no conjunctival injection CV: regular rhythm, no murmur appreciated, extremities well-perfused, no LE edema Resp: CTABL, no wheezes/rales/rhonchi appreciated, no increased work of breathing GI: soft, nondistended, nontender, BS normoactive MSK: no gross deformities appreciated Skin: warm, dry, no rash appreciated Neuro: alert, oriented,no focal neurological deficits Discharge Data Allergies Allergy/AdvReac Type Severity Reaction Status Date / Time metformin AdvReac Intermediate Diarrhea Verified 10/20/23 16:40 Consultations 10/20/23 19:54 ED Decision to Admit Stat Ordered Studies 10/20/23 16:02 CT head/brain wo con Stat 10/20/23 17:39 CT angio head w con Stat CT angio neck with con Stat Hospital Course (1) HTN (hypertension): -Pt presents back to ER with headache and severe hypertension shortly after discharge for CVA -This is likely a hypertensive emergency as workup does not suggest new acute CVA and report of confusion at home after discharge may represent hypertensive encephalopathy/end-organ damage -Neurology note 10/20 reviewed- recommendations for permissive HTN x24 hours -Started on 100mg losartan and amlodipine 5mg with improvement of symptoms -Plan to d/c on 40mg olmesartan and 5mg amlodipine with prn amlodipine for blood pressure >190/100. F/u in office 10/27 (2) Acute CVA (cerebrovascular accident): -Noted recent ischemic stroke of L basal ganglia, most likely small-vessel CVA -Currently no evidence of new CVA on head CT, deferring MRI as last one was 10/19 -Head CT negative, head/neck CTA negative -Continue medications for secondary risk reduction -DAPT -High intensity statin -BP control as above (3) Hyperlipidemia: -Continue high intensity statin- rosuvastatin 40 mg (4) Insulin-requiring or dependent type II diabetes mellitus: -History of uncontrolled diabetes with last A1C 9.9% on 10/20 -Plan to continue Jardiance (new prescriptions he has not started yet) - He has a continuous glucose monitor - may need addition glucose control, will discuss at OP f/u (5) Hypokalemia: -K 3.3 on admission -Repleted, resolved Total Time Total Time Spent Total Time Spent (In Minutes): <30 Discharge Plan Discharge Items Patient Disposition: Home - Self-Care Reason For Visit: TIA, HTN Discharge Diagnosis: CVA, HTN Activity: Per Instructions section Non-emergency contact: Primary Care Provider Call non-emergency contact if: you have any medication questions and your symptoms worsen Follow-up/Referrals: Britt Saez DO [Resident] - (Has an apt 10/27 ) PCP,NO [Primary Care Provider] - Diet: Regular Addtl Attending Provider Instructions: You were admitted for a stroke. We started you on a number of new medications which we sent to the pharmacy for you: - For high blood pressure: 40mg Olmesartan once daily and 5mg of amlodipine once daily. If you check you blood pressure at home and is is greater than 190/100 then it is reasonable to take another dose of amlodipine; if you are having any symptoms like headache, chest pain, dyspnea, blurred vision then you should come back to the ED. Please feel free to call the [facility] office with any questions. - For High Cholesterol: 40mg Rosuvastatin once daily - For Stroke (antiplatelet medications): 81mg aspirin daily (if is over the counter, so you can buy at pharmacy), clopidogrel 75mg daily - For Diabetes: Jardiance daily If you have any issues filling these prescriptions, please call [phone] and ask to leave a message for Dr. Saez. Take your medications as instructed; do not skip a dose of your medicines. Make sure all of your doctors know every medicine you are taking (including [id number]-hidiptv medicines, vitamins, and supplements). Call your primary care provider before taking any new medicines (including over- the-counter medicines, vitamins, and supplements), because some of these may interact with your current medications, or may make your symptoms worse. Tell your primary care provider if you cannot afford your medications. It is important to take all of the medications prescribed. Good blood pressure control, lowering cholesterol and controlled the diabetes are all important factors in preventing future strokes. Working on diet and lifestyle modifications will also help with all of these factors. Limited sugars and carbs and trying to get more lean meats, fruits, and vegetables will all be helpful in getting your blood sugars to a desired range. You have a follow up appointment with Dr. Saez on 10/27 at 3:05pm, please bring your home blood pressure cuff to this appointment. Pending Studies at Discharge: No Stand-Alone Forms: [employer], Smoking Cessation Medications and DC Order Prescriptions: New olmesartan 40 mg tablet 40 mg PO DAILY Qty: 30 2RF amlodipine 5 mg tablet 5 mg PO DAILY Qty: 30 2RF Continued aspirin 81 mg capsule 81 mg PO DAILY clopidogrel 75 mg Tablet 75 mg PO QAM 30 Days Qty: 30 0RF rosuvastatin 40 mg tablet 40 mg PO DAILY Qty: 30 2RF empagliflozin 10 mg tablet 10 mg PO DAILY Qty: 30 2RF Held (DME) pen needle, diabetic [BD Ultra-Fine Orig Pen Needle] 29 gauge x 1/2" needle See Rx Instructions .Route Hold Instructions: Hold until PCP f/u. Rx Instructions: Use 1 per day with insulin injection (DME) OneTouch Ultra Test Strip See Rx Instructions .Route Hold Instructions: Hold until PCP f/u. Rx Instructions: As directed (DME) lancets [OneTouch UltraSoft Lancets] Misc See Rx Instructions .Route Hold Instructions: Hold until PCP f/u. Rx Instructions: As directed Discontinued olmesartan 20 mg tablet 20 mg PO DAILY Qty: 30 2RF Ozempic 0.25 mg or 0.5 mg (2 mg/3 mL) pen injector 0.25 mg subcut WK Rx Instructions: Once weekly injection Discharge Orders: Discharge Order (Routine); Ordered 10/21/23 Ordered By: Britt Grant/Other Patient Handouts: Olmesartan Oral Tablet, Amlodipine Oral Tablet Admission Data Admit Date/Time: 10/20/23 20:25 Attending Provider: Amado Padgett Admit Provider: Татьяна Donaldson Primary Care Provider: PCP,NO Other Providers: Vita Michaud Other Interventions: Discharge Summary Assessment (RN) Last Done: 10/21/23 17:39 Supervising Physician Co-Signing Physician Notes I personally examined the patient and verified all aragon points of history and exam, discussed case, and agree with decision making with Dr Saez Feeling better headache gone. In discussion of yesterday's events, he notes that he was starting to have a headache prior to discharge, and did mention it, but he also openly relates that he downplayed it some because he was very anxious to get home. Unfortunately once he got home his headache was way worse, and not too long of a time, his noticed that he was starting to really not act rightbrought him back to the ER. Now he feels much better. We discussed permissive hypertension, autoregulation, and hypertensive urgency'sand discussed that unfortunately his situation did appear quite real, but is quite rare in the greater context of patients that we see. Given that his blood pressures are improving, we have added an additional agent, autoregulation usually lets up over a few days after a stroke, and he is feeling and acting just finewe discussed that it would be safe to the best of our judgment for him to return home again today, but certainly that we would want him feeling safe and reassured about this and that watching him overnight would not be inappropriate. After considering his options, he and his both felt him safe to go home. Vitals noted, in general he is awake and alert pleasant no distress. HEENT normocephalic atraumatic mucous membranes moist. Breathing u nlabored no accessory muscle use good effort. Skin shows no rashes no pallor or icterus. Neuro shows no focal deficits other than maybe slightly slowing of his speech, but this even seems better than yesterday. Hypertensive urgency/hypertensive headache/possible mild hypertensive encephalopathyin the context of autoregulation after a stroke with initiation of antihypertensivesfortunately doing much better, safe/stable for home. See above. As far as his recent strokehe definitely would like to follow-up with outpatient OT at least for an evaluationwith hopes that the process in motion, outpatient follow-up with his PCP, as in regards to his diabetes/stroke/etc. see yesterday's discharge summary. Resident Activity Tracking Resident Involvement: Resident Care Provided Care Provided: Adult Hospital Medicine
--- NOTE | 2023-10-21 20:23 | Billing Data ---
Date of Service October 21, 2023 Coding Level of Care Code 46562 IN/OBS DISCH 30 MIN/LESS
[2023-10-22] MEDS ORDERED: LOSARTAN POTASSIUM 50 MG TAB PO SCH (09:00)
--- NOTE | 2023-10-23 09:25 | Pharmacy Report ---
Pharmacist Stroke Counseling - Date of Service October 23, 2023 - Scope: Pharmacy has been consulted to provide medication discharge counseling for this patient admitted with ischemic stroke as per the Pharmacist Discharge Counseling for Stroke Patients Protocol. - Medications on Discharge: Home Medications Medication Instructions Recorded Confirmed aspirin 81 mg capsule 81 mg PO DAILY 07/12/21 10/20/23 blood sugar diagnostic (OneTouch 07/12/21 08/21/22 Ultra Test strips) lancets (OneTouch UltraSoft 07/12/21 10/20/23 Lancets) pen needle, diabetic 29 gauge x 07/12/21 10/20/23 1/2" (BD Ultra-Fine Original Pen Needle) New Rx's Medication Instructions Recorded clopidogrel 75 mg tablet 75 mg PO QAM 30 days #30 tabs 10/20/23 empagliflozin 10 mg tablet 10 mg PO DAILY #30 tabs 10/20/23 rosuvastatin 40 mg tablet 40 mg PO DAILY #30 tabs 10/20/23 amlodipine 5 mg tablet 5 mg PO DAILY #30 tabs 10/21/23 olmesartan 40 mg tablet 40 mg PO DAILY #30 tabs 10/21/23 - Action: The above medications, specifically ones for stroke treatment/prophylaxis, have been reviewed in detail with the patient and/or patient healthcare sales representative(s) prior to discharge. This includes indication, common adverse reactions, drug interactions, and medication administration. Medication counseling has been employed using the teach-back method to ensure understanding. - Outcome: The patient and/or patient healthcare sales representative(s) have demonstrated understanding of the medications. Additional comments: * Patient able to belt picker all new medications following discharge on 10/21. Patient was able to confirm each medication with bottles in front of him, including aspirin OTC. * Side effects/warnings and precautions discussed with patient. No concerns at this time. * No obvious barriers to medication compliance noted. Follow-up appointment with outpatient provider next week. Thank you for allowing pharmacy to be involved in the care of this patient. Please call [phone] with any additional questions
== END 2023-10-21 18:35 | disposition home or self-care (01) ==
LOC: 4W 15:51 → ED 15:51 → SUATTDRO 20:25 → 4W 21:43